=== PATIENT | female | born 1945 | race Caucasian/White ===

== ENCOUNTER 2023-01-22 14:48 | Inpatient (IN) | payer MEDICARE, BC, SELFPAY ==
[2023-01-22] VITALS (24 sets, daily range): BP systolic 133–163; BP diastolic 62–85; PULSE 91–113; RESP 18; TEMP 36.1–36.8; O2SAT 92–98; BMI 25.0
--- NOTE | 2023-01-22 15:18 | CRLHL7_ITS ---
For Patients: As a result of the Cures Act, medical imaging exams and procedure reports are released immediately into your electronic medical record. You may view this report before your referring provider. If you have questions, please contact your health care provider. INDICATION: Right wrist deformity after fall. COMPARISON: None available. TECHNIQUE: AP, lateral, and oblique views of the right wrist are obtained for a total of three views. FINDINGS: There is an acute, transverse, impacted fracture of the distal radial diaphysis with approximately 30 degrees of dorsal angulation of the distal fracture fragment. The impaction results in mild positive ulnar variance. There is an acute, oblique, impacted fracture of the base of the ulnar styloid with approximately 2 millimeters of dorsal displacement of the distal fracture fragment. There is mild deformity of the distal shaft of the 5th metacarpal from an old, healed fracture. The bones of the carpus are in anatomic alignment with the distal radius. 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 The soft tissues are normal in appearance with no sign of foreign body. IMPRESSION: Acute, impacted, transverse, moderately angulated fracture of the distal radius. Acute, impacted, mildly displaced, oblique fracture of the base of the ulnar styloid. Dictated by Shaquille Rivera MD @ 01/22/2023 5:32:35 PM (Electronically Signed)
--- NOTE | 2023-01-22 15:18 | CRLHL7_ITS ---
For Patients: As a result of the Cures Act, medical imaging exams and procedure reports are released immediately into your electronic medical record. You may view this report before your referring provider. If you have questions, please contact your health care provider. INDICATION: Pain after fall. COMPARISON: Pelvis and right femur from 02/22/2021. TECHNIQUE: The right hip and femur were examined with AP and cross-table lateral views. An AP view of the pelvis is obtained for a total of three views. FINDINGS: There is stable satisfactory appearance of ORIF of an intertrochanteric fracture of the right hip with a long femoral intramedullary dani with femoral neck nail and distal interlocking screw. The fixation hardware is intact with no sign of fracture or loosening. I do not see any sign periprosthetic fracture. Again seen is superior displacement of the superior fragment of the greater trochanter. The right femoral head and acetabulum are in anatomic alignment. There is stable mild primary osteoarthritis of both hips with normal joint space height, mild sclerosis of the articular surfaces, and mild marginal osteophyte formation. The SI joints and pubic symphysis are normal in appearance. Again seen is mild irregularity of the right inferior pubic ramus from an old, healed fracture. Irregularity of the lateral aspect of the right superior pubic ramus is consistent with an additional old fracture. The rest of the bony pelvis and soft tissues are normal in appearance. IMPRESSION: No sign of acute osseous injury. Stable satisfactory appearance of ORIF of an intertrochanteric fracture of the right hip using a long femoral intramedullary dani with femoral neck nail and distal interlocking screw. Stable appearance of old fractures of the right superior and inferior pubic rami. 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 Dictated by Shaquille Rivera MD @ 01/22/2023 5:30:22 PM (Electronically Signed)
--- NOTE | 2023-01-22 15:27 | ED_ITS ---
HPI - General Adult General Date Seen: 01/22/23 Chief complaint: Fall/Minor Trauma Stated complaint: Fall Time Seen by Provider: 01/22/23 15:05 Source: patient and RN notes reviewed Mode of arrival: EMS Limitations: no limitations History of Present Illness HPI narrative: Patient is a 78-year-old woman who lives at an assisted living. She is reportedly fairly self-sufficient. She was trying to get out of bed this morning at 7:30 a.m. got tangled in the sheets and fell out of bed landing face forward. She was apparently not found until 06 23, when a notice she did not come down for lunch. She was unable to get up. She has complaints of pain in the right thigh and groin as well as in the right wrist. She denies loss of consciousness. She denies headache or neck pain. No blood thinners. She does smoke and has a history of alcohol use. Related Data Home Medications Medication Instructions Recorded Confirmed atorvastatin 40 mg tablet 40 mg PO HS 01/22/23 01/22/23 furosemide 20 mg tablet 20 mg PO DAILY 01/22/23 01/22/23 metoprolol succinate 50 mg 50 mg PO DAILY 01/22/23 01/22/23 tablet,extended release 24 hr mirtazapine 15 mg tablet 15 mg PO HS 01/22/23 01/22/23 Allergies Allergy/AdvReac Type Severity Reaction Status Date / Time hydrocodone Allergy Verified 01/22/23 14:55 Penicillins Allergy Verified 01/22/23 14:55 tramadol Allergy Verified 01/22/23 14:55 Review of Systems Status of ROS: Reports: 10 or more systems reviewed and unremarkable except as noted in History and below [facility] Social History Smoking Status: Current some day smoker What tobacco products do you use: cigarettes Do you use any of these nicotine containing products: None Second hand tobacco smoke exposure: No How often do you have a drink containing alcohol: 2-4 times a month How many standard drinks containing alcohol do you have on a typical day: 1 or 2 How often do you have six or more drinks on one occasion: Never AUDIT-C Alcohol total score: 2 Non-prescribed substance use: denies use service: No Exam Narrative: Exam Narrative: Vital signs as noted above. In general, an alert, nontoxic elderly woman. Head: Normocephalic, atraumatic. Eyes: Pupils are equal reactive. Extraocular movements are full. Conjunctivae are normal. ENT: Mucous membranes are moist. No facial trauma. Neck: Supple without lymphadenopathy. Nontender to palpation. Heart: Regular rate and rhythm. No murmur or rub. Lungs: Clear bilaterally. No increased work of breathing, crackles or wheezes. Abdomen: Soft and nontender. No organomegaly. Extremities: Well perfused. She has the right hip slightly flexed, she has pain in the groin with range of motion. There is no obvious deformity. Distal CMS is intact. On the right upper extremity she has bruising and swelling around the wrist, pain with range of motion. She also notes pain at the anatomical snuff box. Neurologic: Patient is alert and oriented to person and place. Speech is fluent. Face is symmetric. Moves all extremities equally. Affect: Normal. Skin: Warm and dry. Well perfused. Const: Vital Signs, click to edit/add: Vital Signs - 24 hr 01/22/23 14:55 01/22/23 15:14 01/22/23 15:51 Temperature 98.1 F Pulse Rate 98 95 Respiratory Rate 18 Blood Pressure Blood Pressure [Le ft Upper Arm] 163/72 H Pulse Oximetry 96 96 95 Oxygen Delivery Me thod Room Air Room Air 01/22/23 16:00 01/22/23 16:02 01/22/23 16:15 Temperature Pulse Rate 93 91 103 H Respiratory Rate Blood Pressure 163/82 H Blood Pressure [Le ft Upper Arm] Pulse Oximetry 96 96 97 Oxygen Delivery Me thod 01/22/23 16:30 01/22/23 16:31 01/22/23 16:45 Temperature Pulse Rate 95 103 H 99 Respiratory Rate Blood Pressure 152/85 H Blood Pressure [Le ft Upper Arm] Pulse Oximetry 97 98 96 Oxygen Delivery Me thod 01/22/23 17:00 01/22/23 17:27 01/22/23 17:30 Temperature Pulse Rate 103 H 96 93 Respiratory Rate Blood Pressure Blood Pressure [Le ft Upper Arm] Pulse Oximetry 94 96 94 Oxygen Delivery Me thod 01/22/23 17:45 01/22/23 18:04 01/22/23 18:11 Temperature Pulse Rate 94 103 H 100 Respiratory Rate Blood Pressure 148/74 H Blood Pressure [Le ft Upper Arm] Pulse Oximetry 94 92 93 Oxygen Delivery Me thod 01/22/23 18:15 01/22/23 18:53 01/22/23 19:00 Temperature Pulse Rate 102 H 102 H 101 H Respiratory Rate Blood Pressure Blood Pressure [Le ft Upper Arm] Pulse Oximetry 92 97 95 Oxygen Delivery Me thod 01/22/23 19:15 01/22/23 19:30 01/22/23 19:45 Temperature Pulse Rate 104 H 103 H 111 H Respiratory Rate Blood Pressure Blood Pressure [Le ft Upper Arm] Pulse Oximetry 94 95 94 Oxygen Delivery Me thod Documenting provider has reviewed patient's vital signs: yes Course Course Hospital Course: X-rays of right wrist and hip are pending. Will check some basic labs to as well as CK given multiple hours laying on the floor. In terms of labs, these were notable [place] [address], lactate of 4.6. CK was unremarkable at 2:26 a.m.. LFTs unremarkable. Blood sugar 153. Electrolytes were normal. She ended up getting a Nagel because she was unable to use a bed fox or get up because of pain in the right hip and groin. A cath UA showed 25-50 white blood cells. She does not have complaints of fever, weakness, or dysuria, but I think all things considered it is reasonable cover for possible urinary tract infection with Rocephin for now. She had 500 mL of normal saline. She will need a repeat lactate. In terms of imaging, x-rays of the right wrist by my review showed a displaced and angulated fracture of the distal radius as well as the distal ulnar fracture. I recommended that we try to reduce this with a hematoma block and she agreed to that. Procedure note: Hematoma block was performed with lidocaine with epinephrine, 5 mL. I placed her in finger traps with a 5 lb weight and apply gentle pressure t o the distal radius. I did an x-ray, just a lateral view during this and she had good alignment of the distal radius at that time. I placed her in a sandwich splint with Ortho Glass into Patrick wraps. She tolerated all this well. Repeat x-rays after splinting show slight loss of alignment of the distal radius but I think acceptable. X-rays of the hip and pelvis showed intact hardware, she had evidence of pelvic ring fractures, but these were also seen on previous imaging. She was however unable to get out of bed due to pain and therefore I did a CT of the right hip, I also CT of the lumbar spine as she was complaining of pain there. She does have chronic low back pain and it is unclear to me whether not she is having more pain since her fall. CT of the right hip is read by Radiology as showing acute fractures through the acetabulum and pelvic ring. She has compression fractures at L1 and L3 these are indeterminate in age. They can be seen on a previous x-ray although L1 looks more compressed today to me than it did previously. She had some morphine and Tylenol for pain control. Nagel was placed. Plan will be admission for pain control. I consulted orthopedics and they will see her in the hospital as well. Vital Signs Vital signs: Initial Vital Signs Temperature 98.1 F 01/22/23 14:55 Temperature Source Temporal Artery Scan 01/22/23 14:55 Pulse Rhythm Regular 01/22/23 14:55 Respiratory Rate 18 01/22/23 14:55 Blood Pressure 163/72 H 01/22/23 14:55 Blood Pressure Mean 102 01/22/23 14:55 Blood Pressure Position Supine 01/22/23 14:55 Pulse Oximetry 96 01/22/23 14:55 Oxygen Delivery Method Room Air 01/22/23 14:55 Vital Signs Temperature 98.1 F 01/22/23 14:55 Respiratory Rate 18 01/22/23 14:55 Blood Pressure 163/72 H 01/22/23 14:55 Pulse Oximetry 96 01/22/23 14:55 Oxygen Delivery Method Room Air 01/22/23 14:55 Temperature 98.1 F 01/22/23 14:55 Pulse Rate 111 H 01/22/23 19:45 Respiratory Rate 18 01/22/23 14:55 Blood Pressure 148/74 H 01/22/23 18:11 Pulse Oximetry 94 01/22/23 19:45 Oxygen Delivery Method Room Air 01/22/23 15:51 Medical Decision Making Lab Data Labs: Lab Results 01/22/23 01/22/23 01/22/23 Range/Units 16:12 16:12 16:12 WBC 19.29 H (4.50-11.00) K/uL RBC 3.98 L (4.00-5.20) m/uL Hgb 13.7 (12.0-16.0) gm/dL Hct 40.3 (33.0-51.0) % MCV 101 H (80-100) fL MCH 34 (26-34) pg MCHC 34 (32-36) gm/dL RDW Coeff of Denise 12.5 (11.5-15.5) % Plt Count 257 (140-440) K/uL Neut % (Auto) 82.7 H (42.0-72.0) % Lymph % (Auto) 8.8 L (20-44) % [place] % (Auto) 7.9 (0.0-11.0) % Eos % (Auto) 0.0 (0.0-7.0) % Baso % (Auto) 0.1 (0.0-3.0) % Neut # (Auto) 16.00 H (1.7-7.0) K/uL Lymph # (Auto) 1.70 (0.90-2.90) K/uL [place] # (Auto) 1.50 H (0.00-0.90) K/UL Eos # (Auto) 0.00 (0.00-0.50) K/uL Baso # (Auto) 0.00 (0.00-0.30) K/uL Abs Immat Gran (auto) 0.10 (0.00-0.30) K/uL Imm/Tot Granulo (auto) 0.5 % Sodium 135 (135-149) mmol/L Potassium 3.9 (3.6-5.1) mmol/L Chloride 94 L (96-114) mmol/L Carbon Dioxide 30 (20-32) mmol/L BUN 12 (7-30) mg/dL Creatinine 0.5 (0.5-1.5) mg/dL Estimated Creat Clear 42.39 Estimated GFR 97 ml/min Glucose 153 H (60-115) mg/dL Lactate 4.6 H* (0.5-1.9) mmol/L Calcium 9.0 (8.4-10.6) mg/dL Total Bilirubin 1.5 Cancelled (0.1-1.5) mg/dL Direct Bilirubin 0.1 Cancelled (0.0-0.5) mg/dL AST 41 H (12-35) U/L ALT (4-35) U/L Alkaline Phosphatase (40-150) U/L Total Creatine Kinase (41-117) U/L Total Protein (6.0-8.3) g/dL Albumin (3.3-5.0) g/dL Urine Color (Yellow) Urine Appearance (Clear) Urine pH (5.0-8.5) Ur Specific [place] (1.000-1.030) Urine Protein (Negative) Urine Glucose (UA) (Negative) Urine Ketones (Negative) Urine Blood (Negative) Urine Nitrite (Negative) Urine Bilirubin (Negative) Urine Urobilinogen (0.2-1.0) Ur Leukocyte Esterase (Negative) Urine RBC (0-2) Urine WBC (0-5) Ur Squamous Epith Cells (None-Few) Urine Bacteria (None) 01/22/23 01/22/23 01/22/23 Range/Units 16:12 16:12 16:12 WBC (4.50-11.00) K/uL RBC (4.00-5.20) m/uL Hgb (12.0-16.0) gm/dL Hct (33.0-51.0) % MCV (80-100) fL MCH (26-34) pg MCHC (32-36) gm/dL RDW Coeff of Denise (11.5-15.5) % Plt Count (140-440) K/uL Neut % (Auto) (42.0-72.0) % Lymph % (Auto) (20-44) % [place] % (Auto) (0.0-11.0) % Eos % (Auto) (0.0-7.0) % Baso % (Auto) (0.0-3.0) % Neut # (Auto) (1.7-7.0) K/uL Lymph # (Auto) (0.90-2.90) K/uL [place] # (Auto) (0.00-0.90) K/UL Eos # (Auto) (0.00-0.50) K/uL Baso # (Auto) (0.00-0.30) K/uL Abs Immat Gran (auto) (0.00-0.30) K/uL Imm/Tot Granulo (auto) % Sodium (135-149) mmol/L Potassium (3.6-5.1) mmol/L Chloride (96-114) mmol/L Carbon Dioxide (20-32) mmol/L BUN (7-30) mg/dL Creatinine (0.5-1.5) mg/dL Estimated Creat Clear Estimated GFR ml/min Glucose (60-115) mg/dL Lactate (0.5-1.9) mmol/L Calcium (8.4-10.6) mg/dL Total Bilirubin (0.1-1.5) mg/dL Direct Bilirubin (0.0-0.5) mg/dL AST Cancelled (12-35) U/L ALT 25 Cancelled (4-35) U/L Alkaline Phosphatase 84 Cancelled (40-150) U/L Total Creatine Kinase 226 H (41-117) U/L Total Protein 7.3 (6.0-8.3) g/dL Albumin (3.3-5.0) g/dL Urine Color (Yellow) Urine Appearance (Clear) Urine pH (5.0-8.5) Ur Specific [place] (1.000-1.030) Urine Protein (Negative) Urine Glucose (UA) (Negative) Urine Ketones (Negative) Urine Blood (Negative) Urine Nitrite (Negative) Urine Bilirubin (Negative) Urine Urobilinogen (0.2-1.0) Ur Leukocyte Esterase (Negative) Urine RBC (0-2) Urine WBC (0-5) Ur Squamous Epith Cells (None-Few) Urine Bacteria (None) 01/22/23 01/22/23 01/22/23 Range/Units 16:12 16:12 17:20 WBC (4.50-11.00) K/uL RBC (4.00-5.20) m/uL Hgb (12.0-16.0) gm/dL Hct (33.0-51.0) % MCV (80-100) fL MCH (26-34) pg MCHC (32-36) gm/dL RDW Coeff of Denise (11.5-15.5) % Plt Count (140-440) K/uL Neut % (Auto) (42.0-72.0) % Lymph % (Auto) (20-44) % [place] % (Auto) (0.0-11.0) % Eos % (Auto) (0.0-7.0) % Baso % (Auto) (0.0-3.0) % Neut # (Auto) (1.7-7.0) K/uL Lymph # (Auto) (0.90-2.90) K/uL [place] # (Auto) (0.00-0.90) K/UL Eos # (Auto) (0.00-0.50) K/uL Baso # (Auto) (0.00-0.30) K/uL Abs Immat Gran (auto) (0.00-0.30) K/uL Imm/Tot Granulo (auto) % Sodium (135-149) mmol/L Potassium (3.6-5.1) mmol/L Chloride (96-114) mmol/L Carbon Dioxide (20-32) mmol/L BUN (7-30) mg/dL Creatinine (0.5-1.5) mg/dL Estimated Creat Clear Estimated GFR ml/min Glucose (60-115) mg/dL Lactate (0.5-1.9) mmol/L Calcium (8.4-10.6) mg/dL Total Bilirubin (0.1-1.5) mg/dL Direct Bilirubin (0.0-0.5) mg/dL AST (12-35) U/L ALT (4-35) U/L Alkaline Phosphatase (40-150) U/L Total Creatine Kinase (41-117) U/L Total Protein Cancelled (6.0-8.3) g/dL Albumin 4.3 Cancelled (3.3-5.0) g/dL Urine Color Yellow (Yellow) Urine Appearance Turbid A (Clear) Urine pH 8.5 (5.0-8.5) Ur Specific [place] 1.015 (1.000-1.030) Urine Protein 2+ A (Negative) Urine Glucose (UA) Negative (Negative) Urine Ketones Negative (Negative) Urine Blood Trace-intact A (Negative) Urine Nitrite Negative (Negative) Urine Bilirubin Negative (Negative) Urine Urobilinogen 0.2 (0.2-1.0) Ur Leukocyte Esterase 1+ A (Negative) Urine RBC 0-2 (0-2) Urine WBC 25-50 A (0-5) Ur Squamous Epith Cells Few (None-Few) Urine Bacteria Many A (None) Discharge Plan Discharge Clinical Impression: UTI (urinary tract infection), Right wrist fracture, Closed pelvic fracture Patient Disposition: Admitted As Observation
--- NOTE | 2023-01-22 16:11 | CRLHL7_ITS ---
For Patients: As a result of the Cures Act, medical imaging exams and procedure reports are released immediately into your electronic medical record. You may view this report before your referring provider. If you have questions, please contact your health care provider. INDICATION: Status post closed reduction. COMPARISON: Reproduction films from today at 1534 hours TECHNIQUE: A single lateral view of the right wrist is obtained at 1617 hours FINDINGS: The previously seen volar angulation of the impacted, transverse fracture of the distal radius has been reduced to near anatomic alignment on this single lateral view. There is at most 10 percent dorsal displacement of the distal fracture fragment, with no residual angulation. The fracture of the base of the ulnar styloid cannot be identified on this lateral view. Again seen is mild primary osteoarthritis of the 1st CMC joint. IMPRESSION: Near anatomic alignment of the acute, transverse fracture of the distal radius following closed reduction. Dictated by Shaquille Rivera MD @ 01/22/2023 5:34:51 PM (Electronically Signed)
[2023-01-22 16:17] LABS: Lactate* 4.6 mmol/L (0.5-1.9)
[2023-01-22] MEDS: 0.9 % SODIUM CHLORIDE 500 ML 500 ML IV (16:18)
[2023-01-22 16:22] LABS: Basophils Percent Auto 0.1 % (0.0-3.0); Hematocrit 40.3 % (33.0-51.0); Hemoglobin* 13.7 gm/dL (12.0-16.0); Immature Granulocytes Pct Auto 0.5 %; Lymphocytes Percent Auto 8.8 % (20-44); Mean Corpuscular HGB Conc 34 gm/dL (32-36); Mean Corpuscular Hemoglobin 34 pg (26-34); Mean Corpuscular Volume 101 fL (80-100); Monocytes Percent Auto 7.9 % (0.0-11.0); Neutrophils Percent Auto 82.7 % (42.0-72.0); Platelet Count* 257 K/uL (140-440); RDW Coefficient of Variation % 12.5 % (11.5-15.5); Red Blood Count 3.98 m/uL (4.00-5.20); White Blood Count* 19.29 K/uL (4.50-11.00)
[2023-01-22 16:28] LABS: Slide Review Reflex No
[2023-01-22 16:35] LABS: Albumin* 4.3 g/dL (3.3-5.0); Chloride* 94 mmol/L (96-114); Potassium* 3.9 mmol/L (3.6-5.1); Sodium* 135 mmol/L (135-149)
[2023-01-22 16:37] LABS: Creatinine* 0.5 mg/dL (0.5-1.5); Est. Creatinine Clearance* 42.39; Estimated Glomerular Filt Rate 97 ml/min
[2023-01-22 16:38] LABS: Alkaline Phosphatase* 84 U/L (40-150); Aspartate Amino Transferase* 41 U/L (12-35); Bilirubin Direct* 0.1 mg/dL (0.0-0.5); Bilirubin Total* 1.5 mg/dL (0.1-1.5); Blood Urea Nitrogen* 12 mg/dL (7-30); Carbon Dioxide* 30 mmol/L (20-32); Creatine Kinase* 226 U/L (41-117); Glucose* 153 mg/dL (60-115); Total Protein* 7.3 g/dL (6.0-8.3)
[2023-01-22 16:39] LABS: Alanine Aminotransferase* 25 U/L (4-35)
[2023-01-22] MEDS: MORPHINE 4 MG/ML INJ IVP (16:54)
[2023-01-22] MEDS: ONDANSETRON 2 MG/ML inj 4 MG IVP (16:55)
--- NOTE | 2023-01-22 17:00 | ED.NURSE ---
Finger traps used to assist with wrist reduction. Wrist reduced by MD and orthoglass applied.
--- NOTE | 2023-01-22 17:07 | CRLHL7_ITS ---
For Patients: As a result of the Cures Act, medical imaging exams and procedure reports are released immediately into your electronic medical record. You may view this report before your referring provider. If you have questions, please contact your health care provider. INDICATION: Post reduction and casting. COMPARISON: Immediate post reduction film from today at 1617 hours and pre reduction films from 1534 hours today TECHNIQUE: Portable PA and lateral views of the wrist are obtained. FINDINGS: During the interval, a fiberglass cast has been placed. There is approximately 10 degrees dorsal angulation of the acute, transverse fracture of the distal radius. This is more than seen on the immediate post reduction image, but distinctly less than that seen on the pre reduction images. There is approximately 10 percent dorsal displacement of the distal fracture fragment. The oblique fracture of the base of the ulnar styloid is nondisplaced on the PA view. Again seen is mild deformity of the distal shaft of the 5th metacarpal from an old, healed fracture. The bones of the carpus are in anatomic alignment with the distal radius. Again seen is mild primary osteoarthritis of the 1st CMC joint. The soft tissues are normal in appearance with no sign of foreign body. IMPRESSION: Minimal dorsal angulation and dorsal displacement of the distal fracture fragments of the acute, transverse fracture of the distal radius. Oblique fracture of the base of the ulnar styloid is now seen to be nondisplaced. Dictated by Shaquille Rivera MD @ 01/22/2023 5:37:56 PM (Electronically Signed)
--- NOTE | 2023-01-22 17:22 | ED.NURSE ---
16 spanish lemus catheter placed. ~1L urine removed from lemus bag. Pt's daughter requests UA d/t fall and reports pt seems mildly confused. UA collected and sent.
[2023-01-22 17:35] LABS: Appearance Urine Turbid (Clear); Bilirubin Urine Negative (Negative); Blood Urine Trace-intact (Negative); Color Urine Yellow (Yellow); Glucose Urine Negative (Negative); Ketones Urine Negative (Negative); Leukocyte Esterase Urine 1+ (Negative); Nitrite Urine Negative (Negative); Protein Urine 2+ (Negative); Specific Gravity Urine 1.015 (1.000-1.030); Urobilinogen Urine 0.2 (0.2-1.0); pH Urine 8.5 (5.0-8.5)
--- NOTE | 2023-01-22 17:41 | CRLHL7_ITS ---
For Patients: As a result of the Century Cures Act, medical imaging exams and procedure reports are released immediately into your electronic medical record. You may view this report before your referring provider. If you have questions, please contact your health care provider. Indication: IndicationFall. Technique: Noncontrast CT of the right hip. Permanently recorded images are archived. Please note that all CT scans at this facility use dose modulation, iterative reconstruction, and/or weight-based dosing when appropriate to reduce radiation dose to as low as reasonably achievable. Comparison: Right hip radiographs from the same day. Findings: Acute, minimally displaced fracture of the right superior pubic ramus extending into the anterior acetabulum. Minimally displaced fracture of the right inferior pubic ramus. No definite sacral fracture. Similar-appearing postsurgical changes of ORIF the right hip in the setting of an old intertrochanteric fracture. No perihardware fracture. Diffuse osteopenia. Degenerative changes of the bilateral hips, pubic symphysis, lower lumbar spine, and sacroiliac joints. 4.4 x 3.8 x 3.7 cm partially calcified cystic mass in the right adnexa. Diverticulosis. Calcified fibroids. Indwelling urinary catheter. Atherosclerotic disease. Impression : Acute, minimally displaced fracture of the right superior pubic ramus extending into the anterior acetabulum. Minimally displaced fracture of the right inferior pubic ramus. No definite sacral fracture. 4.4 x 3.8 x 3.7 cm partially calcified cystic mass in the right adnexa. This is suspicious for an ovarian neoplasm. Recommend outpatient pelvic MRI for further characterization, if not previously performed. Please note that all CT scans at this facility use dose modulation, iterative reconstruction, and/or weight-based dosing when appropriate to reduce radiation dose to as low as reasonably achievable. Dictated by Vernon Duarte MD @ 01/22/2023 7:27:32 PM (Electronically Signed)
--- NOTE | 2023-01-22 17:41 | CRLHL7_ITS ---
For Patients: As a result of the Century Cures Act, medical imaging exams and procedure reports are released immediately into your electronic medical record. You may view this report before your referring provider. If you have questions, please contact your health care provider. INDICATION: Fall. TECHNIQUE: CT lumbar spine without contrast. Permanently recorded images are archived. COMPARISON: None. FINDINGS: Vertebrae: Age-indeterminate compression fractures L1 and L3 with 25% height loss at L1 and 50% height loss at L3. grade 1 anterolisthesis of L2 on L3. Discs and facet joints: Fusion of the L3-4 level. Mild degenerative disc changes at L5-S1 and to a lesser degree at L4-5. Multilevel degenerative changes of the facet joints. Extraspinal findings: Atherosclerotic disease. IMPRESSION: Age-indeterminate compression fractures of L1 and L3. Recommend correlation with sites for focal tenderness. These can be further evaluated with MRI. Please note that all CT scans at this facility use dose modulation, iterative reconstruction, and/or weight-based dosing when appropriate to reduce radiation dose to as low as reasonably achievable. Dictated by Vernon Duarte MD @ 01/22/2023 7:33:31 PM (Electronically Signed)
[2023-01-22 17:52] LABS: Bacteria Urine Many; RBC Urine 0-2 (0-2); Squamous Epithelial Cell Urine Few (None-Few); WBC Urine 25-50 (0-5)
[2023-01-22] MEDS: cefTRIAXone 1 GM in 0.9 % SODIUM CHLORIDE Mini-bag 100 ML IVPB (18:49)
[2023-01-22] MEDS: ACETAMINOPHEN 500 MG TABLET 1000 MG PO (19:48)
[2023-01-22] MEDS: 0.9 % SODIUM CHLORIDE 1000 ml 1,000 ML 500 ML IV (22:33)
[2023-01-22] MEDS: ENOXAPARIN 30 MG/0.3ML INJ SUBCUT (22:34)
[2023-01-22] MEDS: MIRTAZAPINE 15 MG TABLET PO (22:40)
--- NOTE | 2023-01-22 23:56 | P.IMHP_ITS ---
Hospitalist- H&P: HPI History of Present Illness Time Seen by Provider: 20:00 Date Seen: 01/22/23 Chief complaint: Fall with multiple fractures Narrative: Hamida Allen is a 78 year old woman was in her usual state of health. Currently residing in an assisted living facility due to increasing needs. Attempted getting out of bed this morning around 0730 and became entangled in her sheets, fell out of bed, landed on her face on the floor. Remained on the floor until 1230 this afternoon when staff from the assisted living facility finally came to check on her because they did not see her at lunch. Was unable to get up. Complain of right thigh and groin pain as well as right wrist pain. Denies loss of consciousness. Denies head or neck pain. Aside from the pain, she is able to move most extremities. No new focal motor neurologic deficits. No fevers, rigors, diaphoresis. No diarrhea, dysuria, urgency, frequency, hematuria. No recent other trauma or injury. Review of Systems Status of ROS: Reports: 10 or more systems reviewed and unremarkable except as noted in History and below [facility] Medical History History of failure to thrive syndrome ?Z87.898 - Personal history of other specified conditions (ICD-10) History of malnutrition ?Z86.39 - Personal history of other endocrine, nutritional and metabolic disease (ICD-10) Tricuspid regurgitation ?I07.1 - Rheumatic tricuspid insufficiency (ICD-10) Pulmonary hypertension ?I27.20 - Pulmonary hypertension, unspecified (ICD-10) Heart failure with reduced ejection fraction ?I50.20 - Unspecified systolic (congestive) heart failure (ICD-10) Closed fracture of left humerus ?S42.302A - Unspecified fracture of shaft of humerus, left arm, initial encounter for closed fracture (ICD-10) Closed fracture of second lumbar vertebra ?S32.029A - Unspecified fracture of second lumbar vertebra, initial encounter for closed fracture (ICD-10) Closed compression fracture of thoracic vertebra ?S22.000A - Wedge compression fracture of unspecified thoracic vertebra, i nitial encounter for closed fracture (ICD-10) Closed fracture of cuboid bone ?S92.213A - Displaced fracture of cuboid bone of unspecified foot, initial encounter for closed fracture (ICD-10) Closed fracture of 5th metacarpal ?S62.308A - Unspecified fracture of other metacarpal bone, initial encounter for closed fracture (ICD-10) Chronic alcoholism in remission ?F10.21 - Alcohol dependence, in remission (ICD-10) Osteopenia ?M85.80 - Other specified disorders of bone density and structure, unspecified site (ICD-10) Macrocytic anemia ?D53.9 - Nutritional anemia, unspecified (ICD-10) Right sacral radiculopathy ?M54.18 - Radiculopathy, sacral and sacrococcygeal region (ICD-10) Hyperlipidemia ?E78.5 - Hyperlipidemia, unspecified (ICD-10) COPD (chronic obstructive pulmonary disease) with chronic bronchitis ?J44.9 - Chronic obstructive pulmonary disease, unspecified (ICD-10) Tobacco use disorder ?F17.200 - Nicotine dependence, unspecified, uncomplicated (ICD-10) Essential hypertension ?I10 - Essential (primary) hypertension (ICD-10) Surgical History S/P tubal ligation ?Z98.51 - Tubal ligation status (ICD-10) Status post rotator cuff repair ?Z98.890 - Other specified postprocedural states (ICD-10) History of femoral hernia repair ?Z98.890 - Other specified postprocedural states (ICD-10) ?Z87.19 - Personal history of other diseases of the digestive system (ICD-10) Status post appendectomy ?Z90.49 - Acquired absence of other specified parts of digestive tract (ICD- 10) Status post cholecystectomy ?Z90.49 - Acquired absence of other specified parts of digestive tract (ICD- 10) History of bladder suspension procedure ?Z98.890 - Other specified postprocedural states (ICD-10) ?Z87.448 - Personal history of other diseases of urinary system (ICD-10) Status post lumbar spine surgery for decompression of spinal cord ?Z98.890 - Other specified postprocedural states (ICD-10) Family History Sister Breast cancer Mother Heart disease Father High blood pressure Prostate cancer Brother Prostate cancer Social History Narrative: Currently lives in an assisted living setting. Daughter, Alejandra Echevarria, is her designated power of escort blind for health, and her cell phone number is [phone]. Patient requests full resuscitation in the event of cardiopulmonary demise. Dr. Mcgraw is her primary care physician. What is your current living situation?: I presently have a place to live Problems where you live: no known problems Problems where you live details: NA In the past 12 months, utilities in danger of being shut off: no In the past 12 mos, have been you worried that your food would run out before you had money to buy more?: never true In the past 12 mos, the food you bought just didn't last and you didn't have money to buy more?: never true Highest level of school completed/degree received: high school graduate Smoking Status: Current every day smoker What tobacco products do you use: cigarettes Do you use any of these nicotine containing products: None Second hand tobacco smoke exposure: No How often do you have a drink containing alcohol: 4 or more times a week Alcohol type: beer and wine Alcohol type details: drinks 1/2 can of beer or cup of wine daily How many standard drinks containing alcohol do you have on a typical day: 1 or 2 How often do you have six or more drinks on one occasion: Never AUDIT-C Alcohol total score: 4 Non-prescribed substance use: denies use Caffeine: No How often does anyone, including family, friends and others, physically hurt you : never How often does anyone, including family, friends and others, insult or talk down to you: never How often does anyone, including family, friends and others, threaten you with harm: never How often does anyone, including family, friends and others, scream or curse at you: never service: No Meds Home Medications and Allergies Home Medications Medication Instructions Recorded Confirmed Type atorvastatin 40 mg tablet 40 mg PO HS 01/22/23 01/22/23 History furosemide 20 mg tablet 20 mg PO DAILY 01/22/23 01/22/23 History metoprolol succinate 50 mg 50 mg PO DAILY 01/22/23 01/22/23 History tablet,extended release 24 hr mirtazapine 15 mg tablet 15 mg PO HS 01/22/23 01/22/23 History Allergies Allergy/AdvReac Type Severity Reaction Status Date / Time hydrocodone Allergy Verified 01/22/23 14:55 Penicillins Allergy Verified 01/22/23 14:55 tramadol Allergy Verified 01/22/23 14:55 Exam Narrative: Exam Narrative: I examine her in the emergency department, on the exam table, with patient in a semi recumbent position. Appears comfortable when still. Winces with minimal movement. Right forearm and wrist are in a splint at this time. Appears disheveled. Vision and hearing are grossly normal. Alert, oriented to self, place, time, situation. At time seems inappropriately giddy. Articulate, cooperative, friendly. Otherwise mood and affect appear congruent. External auditory canals are clear with tympanic membranes sclerotic. Midline nasal septum. Mallampati class 3 airway. No icterus or conjunctival injection. Pupils equally round reactive light and accommodation. Extraocular muscles are intact. Neck is supple. Midline trachea. No JVD or hepatojugular reflux. No carotid bruits. Pursed lip breathing. Reportedly this is baseline for her. Barrel shaped chest. Mild prolonged expiratory phase. Otherwise lungs are clear to auscultation. No wheezing, rhonchi, or rales. No CVA tenderness. Mild tenderness to thumping over the lower thoracic and upper lumbar spine. Heart tones with regular rhythm. Normal S1-S2. PMI not laterally displaced. Abdomen with active bowel sounds, soft, nontender. No organomegaly or masses. No rebound or guarding. Extremities without edema. No focal motor neurologic deficits. Const: Vital Signs, click to edit/add: Vital Signs - 24 hr 01/22/23 14:55 01/22/23 15:14 01/22/23 15:51 Temperature 98.1 F Pulse Rate 98 95 Pulse Rate [Pulse Oximeter] Respiratory Rate 18 Blood Pressure Blood Pressure [Le ft Upper Arm] 163/72 H Blood Pressure [Ri ght Arm] Pulse Oximetry 96 96 95 Oxygen Delivery Me thod Room Air Room Air 01/22/23 16:00 01/22/23 16:02 01/22/23 16:15 Temperature Pulse Rate 93 91 103 H Pulse Rate [Pulse Oximeter] Respiratory Rate Blood Pressure 163/82 H Blood Pressure [Le ft Upper Arm] Blood Pressure [Ri ght Arm] Pulse Oximetry 96 96 97 Oxygen Delivery Me thod 01/22/23 16:30 01/22/23 16:31 01/22/23 16:45 Temperature Pulse Rate 95 103 H 99 Pulse Rate [Pulse Oximeter] Respiratory Rate Blood Pressure 152/85 H Blood Pressure [Le ft Upper Arm] Blood Pressure [Ri ght Arm] Pulse Oximetry 97 98 96 Oxygen Delivery Me thod 01/22/23 17:00 01/22/23 17:27 01/22/23 17:30 Temperature Pulse Rate 103 H 96 93 Pulse Rate [Pulse Oximeter] Respiratory Rate Blood Pressure Blood Pressure [Le ft Upper Arm] Blood Pressure [Ri ght Arm] Pulse Oximetry 94 96 94 Oxygen Delivery Me thod 01/22/23 17:45 01/22/23 18:04 01/22/23 18:11 Temperature Pulse Rate 94 103 H 100 Pulse Rate [Pulse Oximeter] Respiratory Rate Blood Pressure 148/74 H Blood Pressure [Le ft Upper Arm] Blood Pressure [Ri ght Arm] Pulse Oximetry 94 92 93 Oxygen Delivery Me od 01/22/23 18:15 01/22/23 18:53 01/22/23 19:00 Temperature Pulse Rate 102 H 102 H 101 H Pulse Rate [Pulse Oximeter] Respiratory Rate Blood Pressure Blood Pressure [Le ft Upper Arm] Blood Pressure [Ri ght Arm] Pulse Oximetry 92 97 95 Oxygen Delivery Me od 01/22/23 19:15 01/22/23 19:30 01/22/23 19:45 Temperature Pulse Rate 104 H 103 H 111 H Pulse Rate [Pulse Oximeter] Respiratory Rate Blood Pressure Blood Pressure [Le ft Upper Arm] Blood Pressure [Ri ght Arm] Pulse Oximetry 94 95 94 Oxygen Delivery Me thod 01/22/23 20:00 01/22/23 20:20 01/22/23 20:20 Temperature 98.3 F Pulse Rate 111 H Pulse Rate [Pulse Oximeter] 113 H Respiratory Rate 18 18 Blood Pressure Blood Pressure [Le ft Upper Arm] Blood Pressure [Ri ght Arm] 133/62 Pulse Oximetry 94 96 Oxygen Delivery Me od Room Air 01/22/23 23:00 Temperature Pulse Rate Pulse Rate [Pulse Oximeter] Respiratory Rate Blood Pressure Blood Pressure [Le ft Upper Arm] Blood Pressure [Ri ght Arm] Pulse Oximetry 96 Oxygen Delivery Me od Room Air Hospitalist - H&P: Result Labs Labs: Short CBC 01/22/23 Range/Units 16:12 WBC 19.29 H (4.50-11.00) K/uL Hgb 13.7 (12.0-16.0) gm/dL Hct 40.3 (33.0-51.0) % Plt Count 257 (140-440) K/uL BMP 01/22/23 16:12 Sodium 135 Potassium 3.9 Chloride 94 L Carbon Dioxide 30 BUN 12 Creatinine 0.5 Glucose 153 H Calcium 9.0 Cardiac Enzymes 01/22/23 Range/Units 16:12 Total Creatine Kinase 226 H (41-117) U/L Liver Function 01/22/23 01/22/23 01/22/23 Range/Units 16:12 16:12 16:12 Total Bilirubin 1.5 Cancelled (0.1-1.5) mg/dL Direct Bilirubin 0.1 Cancelled (0.0-0.5) mg/dL AST 41 H (12-35) U/L ALT (4-35) U/L Alkaline Phosphatase (40-150) U/L Albumin (3.3-5.0) g/dL 01/22/23 01/22/23 01/22/23 Range/Units 16:12 16:12 16:12 Total Bilirubin (0.1-1.5) mg/dL Direct Bilirubin (0.0-0.5) mg/dL AST Cancelled (12-35) U/L ALT 25 Cancelled (4-35) U/L Alkaline Phosphatase 84 Cancelled (40-150) U/L Albumin 4.3 (3.3-5.0) g/dL 01/22/23 Range/Units 16:12 Total Bilirubin (0.1-1.5) mg/dL Direct Bilirubin (0.0-0.5) mg/dL AST (12-35) U/L ALT (4-35) U/L Alkaline Phosphatase (40-150) U/L Albumin Cancelled (3.3-5.0) g/dL Urine 01/22/23 Range/Units 17:20 Urine Color Yellow (Yellow) Urine Appearance Turbid A (Clear) Urine pH 8.5 (5.0-8.5) Ur Specific [place] 1.015 (1.000-1.030) Urine Protein 2+ A (Negative) Urine Glucose (UA) Negative (Negative) ECG Attestation: I personally reviewed and interpreted this ECG as follows: ECG interpretation date: 01/23/23 ECG interpretation time: 20:00 Prior ECG tracings: not available for review Interpretation: Normal sinus rhythm with premature atrial complexes. Imaging Right hip x-ray: Attestation: I have reviewed the pertinent imaging results. Radiologist's impression: IMPRESSION: No sign of acute osseous injury. Stable satisfactory appearance of ORIF of an intertrochanteric fracture of the right hip using a long femoral intramedullary dani with femoral neck nail and distal interlocking screw. Stable appearance of old fractures of the right superior and inferior pubic rami. 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 CT scan of pelvis: Attestation: I have reviewed the pertinent imaging results. Radiologist's impression: Impression : Acute, minimally displaced fracture of the right superior pubic ramus extending into the anterior acetabulum. Minimally displaced fracture of the right inferior pubic ramus. No definite sacral fracture. 4.4 x 3.8 x 3.7 cm partially calcified cystic mass in the right adnexa. This is suspicious for an ovarian neoplasm. Recommend outpatient pelvic MRI for further characterization, if not previously performed. CT scan of lumbosacral spine: Attestation: I have reviewed the pertinent imaging results. Radiologist's impression: FINDINGS: Vertebrae: Age-indeterminate compression fractures L1 and L3 with 25% height loss at L1 and 50% height loss at L3. grade 1 anterolisthesis of L2 on L3. Discs and facet joints: Fusion of the L3-4 level. Mild degenerative disc changes at L5-S1 and to a lesser degree at L4-5. Multilevel degenerative changes of the facet joints. Extraspinal findings: Atherosclerotic disease. IMPRESSION: Age-indeterminate compression fractures of L1 and L3. Recommend correlation with sites for focal tenderness. These can be further evaluated with MRI. Right wrist x-ray: Attestation: I have reviewed the pertinent imaging results. Radiologist's impression: IMPRESSION: Acute, impacted, transverse, moderately angulated fracture of the distal radius. Acute, impacted, mildly displaced, oblique fracture of the base of the ulnar styloid. Right wrist x-ray, post closed reduction: Attestation: I have reviewed the pertinent imaging results. Radiologist's impression: IMPRESSION: Near anatomic alignment of the acute, transverse fracture of the distal radius following closed reduction. Assessment and Plan Assessment and plan (1) Fall: Status: Acute (2) Closed pelvic fracture: Problem comment: CT scan of pelvis on 01/22/2023 demonstrates the following: Acute, minimally displaced fracture of the right superior pubic ramus extending into the anterior acetabulum. Minimally displaced fracture of the right inferior pubic ramus. Status: Acute (3) Right wrist fracture: Problem comment: Right wrist x-ray on 01/22/2023 demonstrates the following: Acute, impacted, transverse, moderately angulated fracture of the distal radius. Acute, impacted, mildly displaced, oblique fracture of the base of the ulnar styloid. Status: Acute (4) UTI (urinary tract infection): Problem comment: Possible. Await urine culture. Initiate empiric IV antibiotic. Status: Acute (5) Osteoporosis: Problem comment: Fall from standing, multiple fractures, certainly patient would benefit from consideration for initiation of treatment for osteoporosis in the outpatient setting. Status: Acute (6) Physical debility: Problem comment: Significantly aggravated by current multitude of fractures and associated pain. Status: Acute Plan 1. Reviewed impression with patient and daughter, Alejandra. Answered their questions. 2. Admit to the hospital. 3. Strive to achieve pain control, still not achieved yet. 4. Treat empirically for possible UTI as we await urine cultures. 5. Orthopedic surgery consultation. 6. Physical therapy and occupational therapy consultation. 7. [employer] consultation. 8. Nonpharmacologic and pharmacologic interventions to assist with pain management as much as possible. 9. Claims she is only smoking 1-2 cigarettes daily now. Declines nicotine replacement therapy at this time. 10. Continue with other supportive efforts. 11. Patient and daughter agreeable to above stated plans and recommendations
[2023-01-23 03:00] VITALS: BP 130/60; PULSE 101; RESP 17; TEMP 36.1; O2SAT 96
[2023-01-23 06:53] LABS: Lactate* 1.8 mmol/L (0.5-1.9)
[2023-01-23 06:59] LABS: Basophils Percent Auto 0.2 % (0.0-3.0); Hematocrit 35.4 % (33.0-51.0); Hemoglobin* 11.8 gm/dL (12.0-16.0); Immature Granulocytes Pct Auto 0.3 %; Lymphocytes Percent Auto 14.1 % (20-44); Mean Corpuscular HGB Conc 33 gm/dL (32-36); Mean Corpuscular Hemoglobin 35 pg (26-34); Mean Corpuscular Volume 104 fL (80-100); Monocytes Percent Auto 7.9 % (0.0-11.0); Neutrophils Percent Auto 77.5 % (42.0-72.0); Platelet Count* 218 K/uL (140-440); RDW Coefficient of Variation % 12.8 % (11.5-15.5); Red Blood Count 3.39 m/uL (4.00-5.20); White Blood Count* 13.22 K/uL (4.50-11.00)
[2023-01-23 07:24] LABS: Slide Review Reflex No
[2023-01-23 07:26] LABS: Chloride* 100 mmol/L (96-114); Potassium* 3.7 mmol/L (3.6-5.1); Sodium* 135 mmol/L (135-149)
[2023-01-23 07:28] LABS: Creatine Kinase* 215 U/L (41-117); Creatinine* 0.5 mg/dL (0.5-1.5); Est. Creatinine Clearance* 42.39; Estimated Glomerular Filt Rate 97 ml/min
[2023-01-23 07:29] LABS: Blood Urea Nitrogen* 12 mg/dL (7-30); Carbon Dioxide* 29 mmol/L (20-32); Glucose* 158 mg/dL (60-115)
[2023-01-23 07:32] LABS: C Reactive Protein* 7.7 mg/dL (0.5-1.0)
--- NOTE | 2023-01-23 07:39 | PC.NURSE ---
Patient admitted to unit at 2020, accompanied by daughter Alejandra. Cast to right wrist/lower arm. CMS to right fingers intact, no edema noted. Right lower extremity warm to the touch, patient able to wiggle toes. Bilateral feet are dusky on the sole, per daughter this is per her baseline, capillary refill >3 seconds. Bruising noted to bilateral upper and lower extremities. Patient reporting pain to left knee, bruising noted laterally and medially. Per patient she reported to ER MD regarding left knee pain. Nagel catheter patent, draining cloudy, leni, strong smelling urine. Encouraged patient to drink fluids. Pain reported at 5/10, per patient that is an acceptable pain level.
[2023-01-23 07:40] VITALS: BP 151/84; PULSE 119; RESP 18; TEMP 36.2; O2SAT 92
[2023-01-23] MEDS: FUROSEMIDE 20 MG TABLET PO (08:02)
[2023-01-23] MEDS: METOPROLOL SUCCINATE (XL) 50 MG TAB PO (08:03)
[2023-01-23] MEDS: ACETAMINOPHEN 325 MG TABLET 650 MG PO ×4 (08:03→21:05)
[2023-01-23] MEDS: SODIUM CHLORIDE 0.9 % (FLUSH) 10 ML SYRINGE 5 ML IVF ×2 (08:04→21:06)
--- NOTE | 2023-01-23 08:16 | CRLHL7_ITS ---
For Patients: As a result of the Cures Act, medical imaging exams and procedure reports are released immediately into your electronic medical record. You may view this report before your referring provider. If you have questions, please contact your health care provider. Indication: L KNEE PAIN, FALL Technique: Left knee 3 views Comparison: None Findings: Patellofemoral spurring. No joint effusion. Dense vascular calcifications. Chronic changes to the lateral tibial plateau with subchondral concavity. Medial compartment narrowing. Osteopenia. Impression: Chronic impaction fracture deformity of the lateral tibial plateau. No acute fracture. Dictated by Sudhakar Soares MD @ 01/23/2023 9:07:00 AM (Electronically Signed)
--- NOTE | 2023-01-23 09:38 | CRLHL7_ITS ---
For Patients: As a result of the Century Cures Act, medical imaging exams and procedure reports are released immediately into your electronic medical record. You may view this report before your referring provider. If you have questions, please contact your health care provider. INDICATION: WHEEZING TECHNIQUE: Chest 1 view COMPARISON: 09/01/2015 FINDINGS: Cardiac silhouette is mildly prominent. There are vascular calcifications. No infiltrate or edema. No effusion or pneumothorax. Postop changes to the right shoulder. IMPRESSION: No acute findings. Dictated by Sudhakar Soares MD @ 01/23/2023 10:30:03 AM (Electronically Signed)
--- NOTE | 2023-01-23 09:49 | PM.IMPN1 ---
Progress Note: A&P Assessment and plan (1) Fall: Problem details: - mechanical Status: Acute (2) Closed pelvic fracture: Problem details: - CT scan of pelvis on 01/22/23: Acute, minimally displaced fracture of the right superior pubic ramus extending into the anterior acetabulum. Minimally displaced fracture of the right inferior pubic ramus. Status: Acute (3) Right wrist fracture: Problem details: - Right wrist XR on 01/22/2023: Acute, impacted, transverse, moderately angulated fracture of the distal radius Acute, impacted, mildly displaced, oblique fracture of the base of the ulnar styloid Status: Acute (4) UTI (urinary tract infection): Problem details: - + UA, culture pending - Ceftriaxone initiated 01/22 Status: Acute (5) Osteoporosis: Problem details: - Fall from standing with multiple fractures - Certainly patient would benefit from consideration for initiation of treatment for osteoporosis in the outpatient setting Status: Acute (6) Physical debility: Problem details: - therapies following Status: Acute (7) Wheezing: Problem details: - noted on exam 01/23, patient not having any chest pain or dyspnea. + smoker - RT referral placed Status: Acute (8) Tachycardia: Problem details: - sinus, possibly related to pain (patient refusing to take anything beyond Tylenol 650mg BID), dehydration (urine appears concentrated, + UA) - low dose IVFs, hold Furosemide, continue Metoprolol, continue to follow Status: Acute (9) Ovarian mass, right: Problem details: - seen on admission imaging - noted in 2021 per chart review, patient has seen Gynecology as an outpatient Status: Acute Plan - per above - Lovenox and SCDs for ppx - will need SNF upon discharge Subjective Date Seen: 01/23/23 Interval history: Hamida was admitted last night after a mechanical fall, sustaining a fracture of her R radius/ulna, R inferior pubic ramus. She has intermittent pain today, no other concerns for the hospitalist team. She is accepting of the need for SNF placement upon discharge. Exam Narrative: Exam Narrative: GEN: Alert, loquacious, nontoxic HEENT: EOMIs bilaterally, no scleral icterus CV: RRR, No concerning murmurs R: Air movement adequate, mild expiratory wheezing bilateral apices Ext: wwp, no concerning edema Skin: Scattered bruises and abrasions noted on left upper extremity and left knee, right arm is splinted and VENTURA wrapped Neuro: Nonfocal Psych: Appropriate Const: Vital Signs, click to edit/add: Vital Signs - 24 hr 01/22/23 14:55 01/22/23 15:14 01/22/23 15:51 Temperature 98.1 F Pulse Rate 98 95 Pulse Rate [Pulse Oximeter] Respiratory Rate 18 Blood Pressure Blood Pressure [Le ft Upper Arm] 163/72 H Blood Pressure [Ri ght Arm] Pulse Oximetry 96 96 95 Oxygen Delivery Me thod Room Air Room Air 01/22/23 16:00 01/22/23 16:02 01/22/23 16:15 Temperature Pulse Rate 93 91 103 H Pulse Rate [Pulse Oximeter] Respiratory Rate Blood Pressure 163/82 H Blood Pressure [Le ft Upper Arm] Blood Pressure [Ri ght Arm] Pulse Oximetry 96 96 97 Oxygen Delivery Me thod 01/22/23 16:30 01/22/23 16:31 01/22/23 16:45 Temperature Pulse Rate 95 103 H 99 Pulse Rate [Pulse Oximeter] Respiratory Rate Blood Pressure 152/85 H Blood Pressure [Le ft Upper Arm] Blood Pressure [Ri ght Arm] Pulse Oximetry 97 98 96 Oxygen Delivery Me thod 01/22/23 17:00 01/22/23 17:27 01/22/23 17:30 Temperature Pulse Rate 103 H 96 93 Pulse Rate [Pulse Oximeter] Respiratory Rate Blood Pressure Blood Pressure [Le ft Upper Arm] Blood Pressure [Ri ght Arm] Pulse Oximetry 94 96 94 Oxygen Delivery Me thod 01/22/23 17:45 01/22/23 18:04 01/22/23 18:11 Temperature Pulse Rate 94 103 H 100 Pulse Rate [Pulse Oximeter] Respiratory Rate Blood Pressure 148/74 H Blood Pressure [Le ft Upper Arm] Blood Pressure [Ri ght Arm] Pulse Oximetry 94 92 93 Oxygen Delivery Me thod 01/22/23 18:15 01/22/23 18:53 01/22/23 19:00 Temperature Pulse Rate 102 H 102 H 101 H Pulse Rate [Pulse Oximeter] Respiratory Rate Blood Pressure Blood Pressure [Le ft Upper Arm] Blood Pressure [Ri ght Arm] Pulse Oximetry 92 97 95 Oxygen Delivery Me thod 01/22/23 19:15 01/22/23 19:30 01/22/23 19:45 Temperature Pulse Rate 104 H 103 H 111 H Pulse Rate [Pulse Oximeter] Respiratory Rate Blood Pressure Blood Pressure [Le ft Upper Arm] Blood Pressure [Ri ght Arm] Pulse Oximetry 94 95 94 Oxygen Delivery Me thod 01/22/23 20:00 01/22/23 20:20 01/22/23 20:20 Temperature 98.3 F Pulse Rate 111 H Pulse Rate [Pulse Oximeter] 113 H Respiratory Rate 18 18 Blood Pressure Blood Pressure [Le ft Upper Arm] Blood Pressure [Ri ght Arm] 133/62 Pulse Oximetry 94 96 Oxygen Delivery Me thod Room Air 01/22/23 23:00 01/22/23 23:00 01/23/23 03:00 Temperature 97.0 F L 97.0 F L Pulse Rate Pulse Rate [Pulse Oximeter] 98 101 H Respiratory Rate 18 17 Blood Pressure Blood Pressure [Le ft Upper Arm] Blood Pressure [Ri ght Arm] 150/72 H 130/60 Pulse Oximetry 96 94 96 Oxygen Delivery Me thod Room Air Room Air Room Air 01/23/23 07:40 01/23/23 07:40 01/23/23 07:40 Temperature 97.2 F L Pulse Rate Pulse Rate [Pulse Oximeter] 119 H 119 H Respiratory Rate 18 18 18 Blood Pressure Blood Pressure [Le ft Upper Arm] Blood Pressure [Ri ght Arm] 151/84 H Pulse Oximetry 92 92 Oxygen Delivery Me thod Room Air Room Air Labs Labs: Laboratory Results - last 24 hr 01/22/23 01/22/23 01/22/23 16:12 16:12 16:12 WBC 19.29 H RBC 3.98 L Hgb 13.7 Hct 40.3 MCV 101 H MCH 34 MCHC 34 RDW Coeff of Denise 12.5 Plt Count 257 Neut % (Auto) 82.7 H Lymph % (Auto) 8.8 L [place] % (Auto) 7.9 Eos % (Auto) 0.0 Baso % (Auto) 0.1 Neut # (Auto) 16.00 H Lymph # (Auto) 1.70 [place] # (Auto) 1.50 H Eos # (Auto) 0.00 Baso # (Auto) 0.00 Abs Immat Gran (auto) 0.10 Imm/Tot Granulo (auto) 0.5 Sodium 135 Potassium 3.9 Chloride 94 L Carbon Dioxide 30 BUN 12 Creatinine 0.5 Estimated Creat Clear 42.39 Estimated GFR 97 Glucose 153 H Lactate 4.6 H* Calcium 9.0 Total Bilirubin 1.5 Cancelled Direct Bilirubin 0.1 Cancelled AST 41 H ALT Alkaline Phosphatase Total Creatine Kinase C-Reactive Protein Total Protein Albumin Urine Color Urine Appearance Urine pH Ur Specific [place] Urine Protein Urine Glucose (UA) Urine Ketones Urine Blood Urine Nitrite Urine Bilirubin Urine Urobilinogen Ur Leukocyte Esterase Urine RBC Urine WBC Ur Squamous Epith Cells Urine Bacteria 01/22/23 01/22/23 01/22/23 16:12 16:12 16:12 WBC RBC Hgb Hct MCV MCH MCHC RDW Coeff of Denise Plt Count Neut % (Auto) Lymph % (Auto) [place] % (Auto) Eos % (Auto) Baso % (Auto) Neut # (Auto) Lymph # (Auto) [place] # (Auto) Eos # (Auto) Baso # (Auto) Abs Immat Gran (auto) Imm/Tot Granulo (auto) Sodium Potassium Chloride Carbon Dioxide BUN Creatinine Estimated Creat Clear Estimated GFR Glucose Lactate Calcium Total Bilirubin Direct Bilirubin AST Cancelled ALT 25 Cancelled Alkaline Phosphatase 84 Cancelled Total Creatine Kinase 226 H C-Reactive Protein Total Protein 7.3 Albumin Urine Color Urine Appearance Urine pH Ur Specific [place] Urine Protein Urine Glucose (UA) Urine Ketones Urine Blood Urine Nitrite Urine Bilirubin Urine Urobilinogen Ur Leukocyte Esterase Urine RBC Urine WBC Ur Squamous Epith Cells Urine Bacteria 01/22/23 01/22/23 01/22/23 16:12 16:12 17:20 WBC RBC Hgb Hct MCV MCH MCHC RDW Coeff of Denise Plt Count Neut % (Auto) Lymph % (Auto) [place] % (Auto) Eos % (Auto) Baso % (Auto) Neut # (Auto) Lymph # (Auto) [place] # (Auto) Eos # (Auto) Baso # (Auto) Abs Immat Gran (auto) Imm/Tot Granulo (auto) Sodium Potassium Chloride Carbon Dioxide BUN Creatinine Estimated Creat Clear Estimated GFR Glucose Lactate Calcium Total Bilirubin Direct Bilirubin AST ALT Alkaline Phosphatase Total Creatine Kinase C-Reactive Protein Total Protein Cancelled Albumin 4.3 Cancelled Urine Color Yellow Urine Appearance Turbid A Urine pH 8.5 Ur Specific [place] 1.015 Urine Protein 2+ A Urine Glucose (UA) Negative Urine Ketones Negative Urine Blood Trace-intact A Urine Nitrite Negative Urine Bilirubin Negative Urine Urobilinogen 0.2 Ur Leukocyte Esterase 1+ A Urine RBC 0-2 Urine WBC 25-50 A Ur Squamous Epith Cells Few Urine Bacteria Many A 01/22/23 01/23/23 21:02 05:52 WBC 13.22 H RBC 3.39 L Hgb 11.8 L Hct 35.4 MCV 104 H MCH 35 H MCHC 33 RDW Coeff of Denise 12.8 Plt Count 218 Neut % (Auto) 77.5 H Lymph % (Auto) 14.1 L [place] % (Auto) 7.9 Eos % (Auto) 0.0 Baso % (Auto) 0.2 Neut # (Auto) 10.20 H Lymph # (Auto) 1.90 [place] # (Auto) 1.00 H Eos # (Auto) 0.00 Baso # (Auto) 0.00 Abs Immat Gran (auto) 0.00 Imm/Tot Granulo (auto) 0.3 Sodium 135 Potassium 3.7 Chloride 100 Carbon Dioxide 29 BUN 12 Creatinine 0.5 Estimated Creat Clear 42.39 Estimated GFR 97 Glucose 158 H Lactate 3.0 H 1.8 Calcium 8.0 L Total Bilirubin Direct Bilirubin AST ALT Alkaline Phosphatase Total Creatine Kinase 215 H C-Reactive Protein 7.7 H Total Protein Albumin Urine Color Urine Appearance Urine pH Ur Specific [place] Urine Protein Urine Glucose (UA) Urine Ketones Urine Blood Urine Nitrite Urine Bilirubin Urine Urobilinogen Ur Leukocyte Esterase Urine RBC Urine WBC Ur Squamous Epith Cells Urine Bacteria
[2023-01-23] MEDS: 0.9 % SODIUM CHLORIDE 250 ml 250 ML IV ×2 (10:09→23:21)
--- NOTE | 2023-01-23 11:11 | PC.SOCIAL ---
Addendum entered by HERMILA Chacon 01/23/23 16:03: [facility] declined pt. [facility] will not accept any pt. that smokes and the [facility] has no opening. Pt.'s information was sent to [facility] swing bed. Original Note: Spoke with pt.'s daughter Alejandra cell#[phone], w#[phone] to discuss discharge plans. Alejandra wants pt. to discharge for rehab to [facility]. Alejandra runs the swing bed program at [place]. Referral to be made to [facility] at fax# [phone], Alejandra's work # [phone]. If pt. will not have a 3-day Med A stay she wants pt. assessed for a longterm in [place]. [facility] may have a bed available.
[2023-01-23 11:29] VITALS: BP 154/76; PULSE 111; RESP 18; TEMP 36.3; O2SAT 91
[2023-01-23] MEDS: 0.9 % SODIUM CHLORIDE 1000 ml 1,000 ML 75 ML IV (12:36)
--- NOTE | 2023-01-23 14:44 | PC.NURSE ---
End of shift. pt has been very pleasant. right arm and left leg pain. x ray of leg done. Cast to right wrist/lower arm. active ice is on. teds on and off CMS to right fingers intact, no edema noted. Bruising noted to bilateral upper and lower extremities, bruising noted laterally and medially. Nagel catheter patent. Encouraged patient to drink fluids. Pain reported at 5/10, po pain meds given wth relief. all other pain meds gives pt a rash and she does not want them. she stood with PT
[2023-01-23 15:00] VITALS: BP 158/71; PULSE 90; PULSE 92; RESP 18; TEMP 37.1; O2SAT 90
--- NOTE | 2023-01-23 15:32 | PM.ORCN ---
History of Present Illness HPI Time Seen by Provider: 03:00 Date Seen: 01/23/23 Consult date: 01/23/23 Requesting physician: Marco Monge Consult reason: fracture Chief complaint: Fall with multiple fractures Narrative: Hamida is a very pleasant 78-year-old young lady who fell yesterday on 01/22/2023 getting out of bed around 730 in the morning. She got entangled in her sheets and fell out of bed landing on the floor. She remained on the floor until 12 30 in the afternoon. She was unable to get up from the floor. She had right thigh pain and groin pain and right wrist pain. She denies loss of consciousness. She denies numbness or tingling in her right lower extremity or right upper extremity. She feels overall well. She was found to have right superior pubic ramus fracture extending into the anterior acetabulum and minimally displaced inferior pubic ramus fracture and right comminuted distal radius fracture that was reduced in the emergency room and splinted. Review of Systems Narrative: Patient denies nausea, vomiting, fever, chills, chest pain, shortness of breath PFSH FOR[facility]LY [facility] Medical History History of failure to thrive syndrome ?Z87.898 - Personal history of other specified conditions (ICD-10) History of malnutrition ?Z86.39 - Personal history of other endocrine, nutritional and metabolic disease (ICD-10) Tricuspid regurgitation ?I07.1 - Rheumatic tricuspid insufficiency (ICD-10) Pulmonary hypertension ?I27.20 - Pulmonary hypertension, unspecified (ICD-10) Heart failure with reduced ejection fraction ?I50.20 - Unspecified systolic (congestive) heart failure (ICD-10) Closed fracture of left humerus ?S42.302A - Unspecified fracture of shaft of humerus, left arm, initial encounter for closed fracture (ICD-10) Closed fracture of second lumbar vertebra ?S32.029A - Unspecified fracture of second lumbar vertebra, initial encounter for closed fracture (ICD-10) Closed compression fracture of thoracic vertebra ?S22.000A - Wedge compression fracture of unspecified thoracic vertebra, initial encounter for closed fracture (ICD-10) Closed fracture of cuboid bone ?S92.213A - Displaced fracture of cuboid bone of unspecified foot, initial encounter for closed fracture (ICD-10) Closed fracture of 5th metacarpal ?S62.308A - Unspecified fracture of other metacarpal bone, initial encounter for closed fracture (ICD-10) Chronic alcoholism in remission ?F10.21 - Alcohol dependence, in remission (ICD-10) Osteopenia ?M85.80 - Other specified disorders of bone density and structure, unspecified site (ICD-10) Macrocytic anemia ?D53.9 - Nutritional anemia, unspecified (ICD-10) Right sacral radiculopathy ?M54.18 - Radiculopathy, sacral and sacrococcygeal region (ICD-10) Hyperlipidemia ?E78.5 - Hyperlipidemia, unspecified (ICD-10) COPD (chronic obstructive pulmonary disease) with chronic bronchitis ?J44.9 - Chronic obstructive pulmonary disease, unspecified (ICD-10) Tobacco use disorder ?F17.200 - Nicotine dependence, unspecified, uncomplicated (ICD-10) Essential hypertension ?I10 - Essential (primary) hypertension (ICD-10) Surgical History S/P tubal ligation ?Z98.51 - Tubal ligation status (ICD-10) Status post rotator cuff repair ?Z98.890 - Other specified postprocedural states (ICD-10) History of femoral hernia repair ?Z98.890 - Other specified postprocedural states (ICD-10) ?Z87.19 - Personal history of other diseases of the digestive system (ICD-10) Status post appendectomy ?Z90.49 - Acquired absence of other specified parts of digestive tract (ICD-10) Status post cholecystectomy ?Z90.49 - Acquired absence of other specified parts of digestive tract (ICD-10) History of bladder suspension procedure ?Z98.890 - Other specified postprocedural states (ICD-10) ?Z87.448 - Personal history of other diseases of urinary system (ICD-10) Status post lumbar spine surgery for decompression of spinal cord ?Z98.890 - Other specified postprocedural states (ICD-10) Family History Sister Breast cancer Mother Heart disease Father High blood pressure Prostate cancer Brother Prostate cancer Social History Narrative: Currently lives in an assisted living setting. Daughter, Alejandra Echevarria, is her designated power of family law attorney for health, and her cell phone number is [phone]. Patient requests full resuscitation in the event of cardiopulmonary demise. Dr. Mcgraw is her primary care physician. What is your current living situation?: I presently have a place to live Problems where you live: no known problems Problems where you live details: NA In the past 12 months, utilities in danger of being shut off: no In the past 12 mos, have been you worried that your food would run out before you had money to buy more?: never true In the past 12 mos, the food you bought just didn't last and you didn't have money to buy more?: never true Highest level of school completed/degree received: high school graduate Smoking Status: Current every day smoker What tobacco products do you use: cigarettes Do you use any of these nicotine containing products: None Second hand tobacco smoke exposure: No How often do you have a drink containing alcohol: 4 or more times a week Alcohol type: beer and wine Alcohol type details: drinks 1/2 can of beer or cup of wine daily How many standard drinks containing alcohol do you have on a typical day: 1 or 2 How often do you have six or more drinks on one occasion: Never AUDIT-C Alcohol total score: 4 Non-prescribed substance use: denies use Caffeine: No How often does anyone, including family, friends and others, physically hurt you: never How often does anyone, including family, friends and others, insult or talk down to you: never How often does anyone, including family, friends and others, threaten you with harm: never How often does anyone, including family, friends and others, scream or curse at you: never service: No Meds Home Medications and Allergies Home Medications Medication Instructions Recorded Confirmed Type atorvastatin 40 mg tablet 40 mg PO HS 01/22/23 01/22/23 History furosemide 20 mg tablet 20 mg PO DAILY 01/22/23 01/22/23 History metoprolol succinate 50 mg 50 mg PO DAILY 01/22/23 01/22/23 History tablet,extended release 24 hr mirtazapine 15 mg tablet 15 mg PO HS 07/31/23 07/31/23 History Allergies Allergy/AdvReac Type Severity Reaction Status Date / Time hydrocodone Allergy Verified 01/22/23 14:55 Penicillins Allergy Verified 01/22/23 14:55 tramadol Allergy Verified 01/22/23 14:55 Ortho Exam Narrative Exam Narrative: Examination of the right lower extremity shows no erythema or warmth or sign of infection. CMS is intact. Quad strength 5/5 on the right. She is able to plantar flex and dorsiflex the right ankle and great toe against resistance. The foot is warm. Capillary refill is less than 2 seconds. Pedal pulses are faint. With gentle log-rolling of her right lower extremity she does not have pain in the hip. Examination of the right upper extremity show no decreased sensation in the right upper extremity. She is able to fully extend and fully flex her fingers. She is examined in a splint. The splint Patrick bandage was a bit tight around her thumb and this is removed and and replaced a bit looser. No pain at the elbow. Ecchymosis is present about the wrist, for again see a glimpse of ecchymosis as I unwrapped the Patrick bandage. The splint is not too tight. The Cotton is not too tight About the wrist and hand. Const Vital Signs, click to edit/add: Vital Signs - 24 hr 01/22/23 15:51 01/22/23 16:00 01/22/23 16:02 Temperature Pulse Rate 95 93 91 Pulse Rate [Pulse Oximeter] Respiratory Rate Blood Pressure 163/82 H Blood Pressure [Right Arm] Pulse Oximetry 95 96 96 Oxygen Delivery Method Room Air 01/22/23 16:15 01/22/23 16:30 01/22/23 16:31 Temperature Pulse Rate 103 H 95 103 H Pulse Rate [Pulse Oximeter] Respiratory Rate Blood Pressure 152/85 H Blood Pressure [Right Arm] Pulse Oximetry 97 97 98 Oxygen Delivery Method 01/22/23 16:45 01/22/23 17:00 01/22/23 17:27 Temperature Pulse Rate 99 103 H 96 Pulse Rate [Pulse Oximeter] Respiratory Rate Blood Pressure Blood Pressure [Right Arm] Pulse Oximetry 96 94 96 Oxygen Delivery Method 01/22/23 17:30 01/22/23 17:45 01/22/23 18:04 Temperature Pulse Rate 93 94 103 H Pulse Rate [Pulse Oximeter] Respiratory Rate Blood Pressure Blood Pressure [Right Arm] Pulse Oximetry 94 94 92 Oxygen Delivery Method 01/22/23 18:11 01/22/23 18:15 01/22/23 18:53 Temperature Pulse Rate 100 102 H 102 H Pulse Rate [Pulse Oximeter] Respiratory Rate Blood Pressure 148/74 H Blood Pressure [Right Arm] Pulse Oximetry 93 92 97 Oxygen Delivery Method 01/22/23 19:00 01/22/23 19:15 01/22/23 19:30 Temperature Pulse Rate 101 H 104 H 103 H Pulse Rate [Pulse Oximeter] Respiratory Rate Blood Pressure Blood Pressure [Right Arm] Pulse Oximetry 95 94 95 Oxygen Delivery Method 01/22/23 19:45 01/22/23 20:00 01/22/23 20:20 Temperature 98.3 F Pulse Rate 111 H 111 H Pulse Rate [Pulse Oximeter] 113 H Respiratory Rate 18 Blood Pressure Blood Pressure [Right Arm] 133/62 Pulse Oximetry 94 94 Oxygen Delivery Method 01/22/23 20:20 01/22/23 23:00 01/22/23 23:00 Temperature 97.0 F L Pulse Rate Pulse Rate [Pulse Oximeter] 98 Respiratory Rate 18 18 Blood Pressure Blood Pressure [Right Arm] 150/72 H Pulse Oximetry 96 96 94 Oxygen Delivery Method Room Air Room Air Room Air 01/23/23 03:00 01/23/23 07:40 01/23/23 07:40 Temperature 97.0 F L 97.2 F L Pulse Rate Pulse Rate [Pulse Oximeter] 101 H 119 H Respiratory Rate 17 18 18 Blood Pressure Blood Pressure [Right Arm] 130/60 151/84 H Pulse Oximetry 96 92 92 Oxygen Delivery Method Room Air Room Air Room Air 01/23/23 07:40 01/23/23 11:29 Temperature 97.3 F L Pulse Rate Pulse Rate [Pulse Oximeter] 119 H 111 H Respiratory Rate 18 18 Blood Pressure Blood Pressure [Right Arm] 154/76 H Pulse Oximetry 91 Oxygen Delivery Method Room Air Results Labs Labs: Laboratory Results - last 48 hr 01/22/23 01/22/23 01/22/23 16:12 16:12 16:12 WBC 19.29 H RBC 3.98 L Hgb 13.7 Hct 40.3 MCV 101 H MCH 34 MCHC 34 RDW Coeff of Denise 12.5 Plt Count 257 Neut % (Auto) 82.7 H Lymph % (Auto) 8.8 L Cannon % (Auto) 7.9 Eos % (Auto) 0.0 Baso % (Auto) 0.1 Neut # (Auto) 16.00 H Lymph # (Auto) 1.70 Cannon # (Auto) 1.50 H Eos # (Auto) 0.00 Baso # (Auto) 0.00 Abs Immat Gran (auto) 0.10 Imm/Tot Granulo (auto) 0.5 Sodium 135 Potassium 3.9 Chloride 94 L Carbon Dioxide 30 BUN 12 Creatinine 0.5 Estimated Creat Clear 42.39 Estimated GFR 97 Glucose 153 H Lactate 4.6 H* Calcium 9.0 Total Bilirubin 1.5 Cancelled Direct Bilirubin 0.1 Cancelled AST 41 H ALT Alkaline Phosphatase Total Creatine Kinase C-Reactive Protein Total Protein Albumin Urine Color Urine Appearance Urine pH Ur Specific Watson Urine Protein Urine Glucose (UA) Urine Ketones Urine Blood Urine Nitrite Urine Bilirubin Urine Urobilinogen Ur Leukocyte Esterase Urine RBC Urine WBC Ur Squamous Epith Cells Urine Bacteria 01/22/23 01/22/23 01/22/23 16:12 16:12 16:12 WBC RBC Hgb Hct MCV MCH MCHC RDW Coeff of Denise Plt Count Neut % (Auto) Lymph % (Auto) Cannon % (Auto) Eos % (Auto) Baso % (Auto) Neut # (Auto) Lymph # (Auto) Cannon # (Auto) Eos # (Auto) Baso # (Auto) Abs Immat Gran (auto) Imm/Tot Granulo (auto) Sodium Potassium Chloride Carbon Dioxide BUN Creatinine Estimated Creat Clear Estimated GFR Glucose Lactate Calcium Total Bilirubin Direct Bilirubin AST Cancelled ALT 25 Cancelled Alkaline Phosphatase 84 Cancelled Total Creatine Kinase 226 H C-Reactive Protein Total Protein 7.3 Albumin Urine Color Urine Appearance Urine pH Ur Specific Watson Urine Protein Urine Glucose (UA) Urine Ketones Urine Blood Urine Nitrite Urine Bilirubin Urine Urobilinogen Ur Leukocyte Esterase Urine RBC Urine WBC Ur Squamous Epith Cells Urine Bacteria 01/22/23 01/22/23 01/22/23 16:12 16:12 17:20 WBC RBC Hgb Hct MCV MCH MCHC RDW Coeff of Denise Plt Count Neut % (Auto) Lymph % (Auto) Cannon % (Auto) Eos % (Auto) Baso % (Auto) Neut # (Auto) Lymph # (Auto) Cannon # (Auto) Eos # (Auto) Baso # (Auto) Abs Immat Gran (auto) Imm/Tot Granulo (auto) Sodium Potassium Chloride Carbon Dioxide BUN Creatinine Estimated Creat Clear Estimated GFR Glucose Lactate Calcium Total Bilirubin Direct Bilirubin AST ALT Alkaline Phosphatase Total Creatine Kinase C-Reactive Protein Total Protein Cancelled Albumin 4.3 Cancelled Urine Color Yellow Urine Appearance Turbid A Urine pH 8.5 Ur Specific Watson 1.015 Urine Protein 2+ A Urine Glucose (UA) Negative Urine Ketones Negative Urine Blood Trace-intact A Urine Nitrite Negative Urine Bilirubin Negative Urine Urobilinogen 0.2 Ur Leukocyte Esterase 1+ A Urine RBC 0-2 Urine WBC 25-50 A Ur Squamous Epith Cells Few Urine Bacteria Many A 01/22/23 01/23/23 21:02 05:52 WBC 13.22 H RBC 3.39 L Hgb 11.8 L Hct 35.4 MCV 104 H MCH 35 H MCHC 33 RDW Coeff of Denise 12.8 Plt Count 218 Neut % (Auto) 77.5 H Lymph % (Auto) 14.1 L Cannon % (Auto) 7.9 Eos % (Auto) 0.0 Baso % (Auto) 0.2 Neut # (Auto) 10.20 H Lymph # (Auto) 1.90 Cannon # (Auto) 1.00 H Eos # (Auto) 0.00 Baso # (Auto) 0.00 Abs Immat Gran (auto) 0.00 Imm/Tot Granulo (auto) 0.3 Sodium 135 Potassium 3.7 Chloride 100 Carbon Dioxide 29 BUN 12 Creatinine 0.5 Estimated Creat Clear 42.39 Estimated GFR 97 Glucose 158 H Lactate 3.0 H 1.8 Calcium 8.0 L Total Bilirubin Direct Bilirubin AST ALT Alkaline Phosphatase Total Creatine Kinase 215 H C-Reactive Protein 7.7 H Total Protein Albumin Urine Color Urine Appearance Urine pH Ur Specific Watson Urine Protein Urine Glucose (UA) Urine Ketones Urine Blood Urine Nitrite Urine Bilirubin Urine Urobilinogen Ur Leukocyte Esterase Urine RBC Urine WBC Ur Squamous Epith Cells Urine Bacteria Assessment and Plan Assessment and plan (1) Fall: Problem comment: - mechanical Status: Acute Total time spent: Total time spent is greater than 50% in coordination of care (as documented) at patient's floor/unit and/or counseling patient: (2) Closed pelvic fracture: Problem comment: - CT scan of pelvis on 01/22/23: Acute, minimally displaced fracture of the right superior pubic ramus extending into the anterior acetabulum. Minimally displaced fracture of the right inferior pubic ramus. Status: Acute Assessment and Plan: Recommend DVT prophylaxis Bobby stockings 23 hours per day, aspirin 81 mg b.i.d. for 1 month. Pain medication p.r.n..Recommend weight-bearing when tolerated on the right lower extremity. OT and PT daily at half-way facility Total time spent: Total time spent is greater than 50% in coordination of care (as documented) at patient's floor/unit and/or counseling patient: (3) Right wrist fracture: Problem comment: - Right wrist XR on 01/22/2023: Acute, impacted, transverse, moderately angulated fracture of the distal radius Acute, impacted, mildly displaced, oblique fracture of the base of the ulnar styloid Status: Acute Assessment and Plan: Dr. Kruse did a great job reducing this wrist in the emergency room last night. Plan for the wrist is to leave this current splint on, keep it clean and dry for the next week and re-x-ray in [address] Jim Mon's recommendation. If the fracture displaces, perc pinning verses ORIF would be an option. If wrist fracture stays in its current position, does not shortened, and if swelling is appropriate a short-arm cast can be applied next week. I have encouraged her to work on range of motion of her fingers daily fully extending the fingers and fully flexing them in the splint. No weight-bearing with the right upper extremity. Note, dictation performed with voice recognition, and as a result, wrong word or sound like substitutions may have occurred. There may be areas in the script that have gone on detected. Please consider this when interpreting information found in the chart. Total time spent: Total time spent is greater than 50% in coordination of care (as documented) at patient's floor/unit and/or counseling patient: (4) UTI (urinary tract infection): Problem comment: - + UA, culture pending - Ceftriaxone initiated 01/22 Status: Acute Total time spent: Total time spent is greater than 50% in coordination of care (as documented) at patient's floor/unit and/or counseling patient: (5) Osteoporosis: Problem comment: - Fall from standing with multiple fractures - Certainly patient would benefit from consideration for initiation of treatment for osteoporosis in the outpatient setting Status: Acute Total time spent: Total time spent is greater than 50% in coordination of care (as documented) at patient's floor/unit and/or counseling patient: (6) Physical debility: Problem comment: - therapies following Status: Acute Total time spent: Total time spent is greater than 50% in coordination of care (as documented) at patient's floor/unit and/or counseling patient: (7) Wheezing: Problem comment: - noted on exam 01/23, patient not having any chest pain or dyspnea. + smoker - RT referral placed Status: Acute Total time spent: Total time spent is greater than 50% in coordination of care (as documented) at patient's floor/unit and/or counseling patient: (8) Tachycardia: Problem comment: - sinus, possibly related to pain (patient refusing to take anything beyond Tylenol 650mg BID), dehydration (urine appears concentrated, + UA) - low dose IVFs, hold Furosemide, continue Metoprolol, continue to follow Status: Acute Total time spent: Total time spent is greater than 50% in coordination of care (as documented) at patient's floor/unit and/or counseling patient: (9) Ovarian mass, right: Problem comment: - seen on admission imaging - noted in 2021 per chart review, patient has seen Gynecology as an outpatient Status: Acute Total time spent: Total time spent is greater than 50% in coordination of care (as documented) at patient's floor/unit and/or counseling patient:
[2023-01-23] MEDS: cefTRIAXone 1 GM in 0.9 % SODIUM CHLORIDE Mini-bag 100 ML IVPB (17:56)
[2023-01-23] MEDS: OXYCODONE 5 MG TABLET 2.5 MG PO (18:00)
[2023-01-23 19:00] VITALS: BP 141/70; PULSE 102; RESP 18; TEMP 37; O2SAT 89
[2023-01-23] MEDS: ATORVASTATIN CALCIUM 40 MG TABLET PO (21:05)
[2023-01-23] MEDS: MIRTAZAPINE 15 MG TABLET PO (21:05)
[2023-01-23] MEDS: ENOXAPARIN 30 MG/0.3ML INJ SUBCUT (21:05)
[2023-01-23] MEDS: 0.9 % SODIUM CHLORIDE 1000 ml 1,000 ML 100 ML IV (23:22)
[2023-01-24] VITALS (8 sets, daily range): BP systolic 119–195; BP diastolic 71–91; PULSE 101–126; RESP 18–20; TEMP 35.9–36.9; O2SAT 89–94
[2023-01-24] MEDS: OXYCODONE 5 MG TABLET 2.5 MG PO (04:23)
[2023-01-24 06:26] LABS: Ionized Calcium* 1.11 mmol/L (1.11-1.30)
[2023-01-24 06:27] LABS: Basophils Percent Auto 0.2 % (0.0-3.0); Eosinophils Percent Auto 0.8 % (0.0-7.0); Hematocrit 31.5 % (33.0-51.0); Hemoglobin* 10.2 gm/dL (12.0-16.0); Mean Corpuscular HGB Conc 32 gm/dL (32-36); Mean Corpuscular Hemoglobin 34 pg (26-34); Mean Corpuscular Volume 106 fL (80-100); Monocytes Percent Auto 7.9 % (0.0-11.0); Neutrophils Percent Auto 75.1 % (42.0-72.0); Platelet Count* 175 K/uL (140-440); RDW Coefficient of Variation % 12.9 % (11.5-15.5); Red Blood Count 2.98 m/uL (4.00-5.20); White Blood Count* 11.42 K/uL (4.50-11.00)
[2023-01-24 06:30] LABS: Slide Review Reflex No
--- NOTE | 2023-01-24 06:42 | PC.NURSE ---
Shift note: Pt rates pain 8-9/10 in her shoulder, RN treated per eMAR with relief to 3-4/10. Nagel intact and draining, pt is afebrile
[2023-01-24 06:46] LABS: Chloride* 102 mmol/L (96-114)
[2023-01-24 06:47] LABS: Potassium* 3.3 mmol/L (3.6-5.1); Sodium* 135 mmol/L (135-149)
[2023-01-24 06:49] LABS: Creatinine* 0.5 mg/dL (0.5-1.5); Est. Creatinine Clearance* 42.39; Estimated Glomerular Filt Rate 97 ml/min
[2023-01-24 06:50] LABS: Alanine Aminotransferase* 17 U/L (4-35); Alkaline Phosphatase* 76 U/L (40-150); Aspartate Amino Transferase* 28 U/L (12-35); Bilirubin Total* 0.6 mg/dL (0.1-1.5); Blood Urea Nitrogen* 9 mg/dL (7-30); Calcium* 7.9 mg/dL (8.4-10.6); Carbon Dioxide* 30 mmol/L (20-32); Glucose* 156 mg/dL (60-115); Magnesium* 1.5 mg/dL (1.5-2.6); Total Protein* 5.8 g/dL (6.0-8.3)
[2023-01-24 07:15] LABS: C Reactive Protein* 14.3 mg/dL (0.5-1.0)
[2023-01-24] MEDS: ACETAMINOPHEN 325 MG TABLET 650 MG PO ×4 (08:01→21:14)
[2023-01-24] MEDS: OXYCODONE 5 MG TABLET PO ×3 (08:02→14:21)
[2023-01-24] MEDS: METOPROLOL SUCCINATE (XL) 100 MG TAB PO (09:04)
[2023-01-24] MEDS: SENNOSIDES/DOCUSATE TABLET 1 TAB PO (09:04)
[2023-01-24] MEDS: ASPIRIN 81 MG TAB.CHEW PO ×2 (09:37→21:18)
[2023-01-24] MEDS: 0.9 % SODIUM CHLORIDE 1000 ml 1,000 ML 100 ML IV ×2 (09:37→21:17)
--- NOTE | 2023-01-24 10:54 | P.IMPN_ITS ---
Progress Note: A&P Assessment and plan (1) Fall: Problem details: - mechanical Status: Acute (2) Closed pelvic fracture: Problem details: - CT scan of pelvis on 01/22/23: Acute, minimally displaced fracture of the right superior pubic ramus extending into the anterior acetabulum. Minimally displaced fracture of the right inferior pubic ramus. Status: Acute (3) Right wrist fracture: Problem details: - Right wrist XR on 01/22/2023: Acute, impacted, transverse, moderately angulated fracture of the distal radius Acute, impacted, mildly displaced, oblique fracture of the base of the ulnar styloid Status: Acute (4) UTI (urinary tract infection): Problem details: - + UA, culture pending - Ceftriaxone initiated 01/22 Status: Acute (5) Osteoporosis: Problem details: - Fall from standing with multiple fractures - Certainly patient would benefit from consideration for initiation of ana cristina tment for osteoporosis in the outpatient setting Status: Acute (6) Physical debility: Problem details: - therapies following, will require SNF stay upon discharge Status: Acute (7) Wheezing: Problem details: - noted on exam 01/23, patient not having any chest pain or dyspnea. + smoker, likely COPD - requiring intermittent low dose supplemental oxygen - RT following Status: Acute (8) Tachycardia: Problem details: - sinus, possibly related to pain and/or dehydration. Hgb 10.2, no evidence of acute bleeding. Patient asymptomatic - Metoprolol increased 8/2, holding Lasix, low dose IVFs given decreased UOP, follow renal function, lytes, and Hgb Status: Acute (9) Ovarian mass, right: Problem details: - seen on admission imaging - noted in 2021 per chart review, patient has seen Gynecology as an outpatient Status: Acute Plan - per above - ASA for ppx - awaiting SNF placement Subjective Date Seen: 01/24/23 Interval history: Hamida was admitted 01/22 after a fall at home. She has a splinted fracture of her R radius/ulna, in addition to a fracture of R inferior pubic ramus. Requiring intermittent low dose supplemental oxygen per nasal cannula, no cough, dyspnea, or CP. She has been hesitant to take more pain medication, but tolerated low dose Oxycodone overnight, so amenable to trying a higher dose of that today. No other concerns for the hospitalist team, we continue to await SNF placement. Exam Narrative: Exam Narrative: GEN: Alert and oriented in bed, nontoxic HEENT: EOMIs bilaterally, no scleral icterus CV: RRR (heart rate in the 90s during my exam), no concerning murmurs R: LCTA bilaterally today, no wheezing noted Ext: wwp, no concerning edema, wearing brace RUE, + sensation and movement of R fingers Skin: Bruising and abrasions to RUE and RLE, no other concerning skin lesions or rashes on exposed skin Neuro: Nonfocal Psych: Appropriate Const: Vital Signs, click to edit/add: Vital Signs - 24 hr 01/23/23 11:29 01/23/23 15:00 01/23/23 15:00 Temperature 97.3 F L Pulse Rate [Pulse Oximeter] 111 H 90 Respiratory Rate 18 18 18 Blood Pressure [Ri ght Arm] 154/76 H Pulse Oximetry 91 90 Oxygen Delivery Me thod Room Air Room Air Oxygen Flow Rate 01/23/23 15:00 01/23/23 19:00 01/24/23 00:15 Temperature 98.8 F 98.6 F Pulse Rate [Pulse Oximeter] 92 102 H Respiratory Rate 18 18 Blood Pressure [Ri ght Arm] 158/71 H 141/70 H Pulse Oximetry 90 89 94 Oxygen Delivery Me thod Room Air Room Air Room Air Oxygen Flow Rate 01/24/23 00:15 01/24/23 03:00 01/24/23 08:00 Temperature 98.5 F 98.3 F Pulse Rate [Pulse Oximeter] 106 H 110 H Respiratory Rate 20 20 18 Blood Pressure [Ri ght Arm] 156/76 H 169/87 H Pulse Oximetry 94 92 89 Oxygen Delivery Me thod Room Air Nasal Cannula Room Air Oxygen Flow Rate 1 01/24/23 08:00 01/24/23 08:00 Temperature 96.7 F L Pulse Rate [Pulse Oximeter] 101 H 101 H Respiratory Rate 20 20 Blood Pressure [Ri ght Arm] 195/91 H Pulse Oximetry 89 Oxygen Delivery Me thod Room Air Oxygen Flow Rate Labs Labs: Laboratory Results - last 24 hr 01/24/23 05:48 WBC 11.42 H RBC 2.98 L Hgb 10.2 L Hct 31.5 L MCV 106 H MCH 34 MCHC 32 RDW Coeff of Denise 12.9 Plt Count 175 Neut % (Auto) 75.1 H Lymph % (Auto) 15.0 L Taylor % (Auto) 7.9 Eos % (Auto) 0.8 Baso % (Auto) 0.2 Neut # (Auto) 8.60 H Lymph # (Auto) 1.70 Taylor # (Auto) 0.90 Eos # (Auto) 0.10 Baso # (Auto) 0.00 Abs Immat Gran (auto) 0.10 Imm/Tot Granulo (auto) 1.0 Sodium 135 Potassium 3.3 L Chloride 102 Carbon Dioxide 30 BUN 9 Creatinine 0.5 Estimated Creat Clear 42.39 Estimated GFR 97 Glucose 156 H Calcium 7.9 L Ionized Calcium Lizandro 1.11 Magnesium 1.5 Total Bilirubin 0.6 AST 28 ALT 17 Alkaline Phosphatase 76 C-Reactive Protein 14.3 H Total Protein 5.8 L Albumin 3.0 L
[2023-01-24] MEDS: POTASSIUM BICARB 25 MEQ EFFERVESCENT TAB PO ×2 (12:43→14:21)
--- NOTE | 2023-01-24 14:43 | PC.NURSE ---
end of shift. pt has been very pleasant. right arm and left leg pain. Cast to right wrist/lower arm. active ice is on. teds on and off CMS to right hand intact, no edema noted. Bruising noted to bilateral upper and lower extremities, bruising noted laterally and medially. Nagel cath patent. Encouraged patient to drink fluids. Pain reported at 5/10, po pain meds given wth relief. she is getting po oxy with no problems. . she stood with PT and was in chair. HR increased after pt was placed in chair and md was updated and ekg was ordered once pt was in bed. HR ws regular when it increased in the chair. when back in bed it was noted on EKG it was A-fib and md was updated and tele was ordered.
[2023-01-24] MEDS: METOPROLOL TARTRATE 25 MG TABLET PO ×2 (14:52→19:45)
--- NOTE | 2023-01-24 14:52 | PC.SOCIAL ---
Updated information sent to [facility] swing bed program. They can accept pt. to their swingbed program or Sunday. Pt.'s daughter Alejandra wants a stretcher transport. Yohannes at [facility] can transport pt. either day. Updated pt.'s daughter Alejandra on the $400 cost and that [facility] prefers a check. Alejandra will have a check ready for [facility] upon patient's arrival at [place]. Alejandra will call in the am when the provider determines if the can accept pt. or Sunday.
[2023-01-24] MEDS: MAGNESIUM IV 2 GM/50 ML PIGGYBACK IVPB (14:53)
[2023-01-24] MEDS: cefTRIAXone 1 GM in 0.9 % SODIUM CHLORIDE Mini-bag 100 ML IVPB (18:23)
--- NOTE | 2023-01-24 18:36 | PC.NURSE ---
End of Shift: Patient pleasant and cooperative. Patient vitally stable, lungs clear, BS WNL, IV running NS at 100. Patient has been tachy in the 120's metoprolol given once by previous before midshift handoff. Patient 2 assist, pivot transfer to chair. Patient tolerating regular diet, lemus draining and intact. Patient tele is tachy. Patient rated pain 5/10, scheduled tylenol given.
[2023-01-24] MEDS: MIRTAZAPINE 15 MG TABLET PO (21:14)
[2023-01-24] MEDS: ATORVASTATIN CALCIUM 40 MG TABLET PO (21:17)
[2023-01-25] VITALS (10 sets, daily range): BP systolic 135–174; BP diastolic 66–110; PULSE 68–133; RESP 18–28; TEMP 36.3–36.8; O2SAT 91–96
[2023-01-25] MEDS: METOPROLOL TARTRATE 25 MG TABLET PO ×2 (02:08→06:50)
[2023-01-25] MEDS: 0.9 % SODIUM CHLORIDE 1000 ml 1,000 ML 100 ML IV (06:15)
--- NOTE | 2023-01-25 06:18 | PC.NURSE ---
Shift note: Pt is alert and oriented, condition stable. Tolerating pain very which was rated at 2 and 3. Urine output is low (150ml). No sediment or blood in urine. Iv N/S running at 100ml/hr. Ambulate with A2. Vitally stable. Able to move both upper and lower extremities, wiggle right fingers and adequate blood flow. Pt had adequate sleep.
[2023-01-25 06:37] LABS: Eosinophils Percent Auto 1.6 % (0.0-7.0); Hematocrit 31.5 % (33.0-51.0); Hemoglobin* 10.1 gm/dL (12.0-16.0); Lymphocytes Percent Auto 26.7 % (20-44); Mean Corpuscular HGB Conc 32 gm/dL (32-36); Mean Corpuscular Hemoglobin 34 pg (26-34); Mean Corpuscular Volume 107 fL (80-100); Monocytes Percent Auto 8.2 % (0.0-11.0); Neutrophils Percent Auto 61.8 % (42.0-72.0); Platelet Count* 181 K/uL (140-440); Red Blood Count 2.94 m/uL (4.00-5.20); White Blood Count* 9.35 K/uL (4.50-11.00)
[2023-01-25 06:38] LABS: Basophils Absolute Auto 0.02 K/uL (0.00-0.30); Basophils Percent Auto 0.2 % (0.0-3.0); Eosinophils Absolute Auto 0.15 K/uL (0.00-0.50); Immature Granulocytes Abs Auto 0.14 K/uL (0.00-0.30); Immature Granulocytes Pct Auto 1.5 %; Neutrophils Absolute Auto 5.77 K/uL (1.7-7.0)
[2023-01-25 06:39] LABS: Slide Review Reflex No
[2023-01-25 06:59] LABS: Chloride* 104 mmol/L (96-114); Potassium* 3.8 mmol/L (3.6-5.1); Sodium* 135 mmol/L (135-149)
[2023-01-25 07:02] LABS: Blood Urea Nitrogen* 9 mg/dL (7-30); Carbon Dioxide* 29 mmol/L (20-32); Creatinine* 0.4 mg/dL (0.5-1.5); Est. Creatinine Clearance* 42.39; Estimated Glomerular Filt Rate 102 ml/min; Glucose* 137 mg/dL (60-115)
[2023-01-25 07:03] LABS: Calcium* 8.1 mg/dL (8.4-10.6)
--- NOTE | 2023-01-25 08:00 | CRLHL7_ITS ---
For Patients: As a result of the Century Cures Act, medical imaging exams and procedure reports are released immediately into your electronic medical record. You may view this report before your referring provider. If you have questions, please contact your health care provider. INDICATION: Wheezing TECHNIQUE: Chest 1 view COMPARISON: 01/23/2023 FINDINGS: Mild bronchial wall thickening noted within right lung with a trace right effusion possible. No dense consolidation. Mediastinum unchanged. No pneumothorax. Chronic changes of the right shoulder. IMPRESSION: Mild bronchiolitis suspected on the right. Dictated by Sudhakar Soares MD @ 01/25/2023 9:29:09 AM (Electronically Signed)
[2023-01-25] MEDS: ACETAMINOPHEN 325 MG TABLET 650 MG PO ×4 (08:43→20:40)
[2023-01-25] MEDS: METOPROLOL SUCCINATE (XL) 100 MG TAB PO (08:44)
[2023-01-25] MEDS: ASPIRIN 81 MG TAB.CHEW PO (08:44)
--- NOTE | 2023-01-25 08:53 | P.IMPN_ITS ---
Progress Note: A&P Assessment and plan (1) Fall: Problem details: - mechanical, therapies following; will require SNF upon discharge Status: Acute (2) Closed pelvic fracture: Problem details: - CT scan of pelvis on 01/22/23: Acute, minimally displaced fracture of the right superior pubic ramus extending into the anterior acetabulum. Minimally displaced fracture of the right inferior pubic ramus. Status: Acute (3) Right wrist fracture: Problem details: - Right wrist XR on 01/22/2023: Acute, impacted, transverse, moderately angulated fracture of the distal radius Acute, impacted, mildly displaced, oblique fracture of the base of the ulnar styloid Status: Acute (4) Tachycardia: Problem details: - sinus on admission, Hgb 10.2, no evidence of acute bleeding. Patient asymptomatic - Metoprolol increased 01/24, Diltiazem added 01/25 - repeat EKG 01/24 exhibited a fib with RVR (see below) Status: Acute (5) Atrial fibrillation with RVR: Problem details: - NEW, noted on 01/24/23 EKG - CHADsVasc2 score of 4, CrCL >40 - Apixiban initiated 01/25, Lasix RESTARTED 01/25 (had been held postoperatively) - TTE ordered 01/25 - 01/25: on 100mg XL Metoprolol, scheduled IR Diltiazem Q6H and HR <100 Status: Acute (6) UTI (urinary tract infection): Problem details: - + UA, Klebsiella on culture - Ceftriaxone initiated 01/22 Status: Acute (7) Ovarian mass, right: Problem details: - seen on admission imaging, patient aware (not a new finding) - noted in 2021 per chart review, patient has seen Gynecology as an outpatient Status: Acute Plan - per above - start Apixaban for ppx (stopping ASA) - daughter Alejandra updated by phone, questions answered - will need TTE results and medication/HR stability prior to SNF placement (1-2 more days) Subjective Date Seen: 01/25/23 Interval history: Hamida was admitted 01/22 after a fall at home, resulting in a fracture of her R radius/ulna, in addition to a fracture of R inferior pubic ramus. Yesterday, she was persistently tachycardic despite an increase in her Metoprolol and increased fluid volume; EKG revealed a fib with RVR. Hamida denies CP or palpitations. She is amenable to initiation of Apixaban. Pain is currently controlled. She has not pooped for 3-4 days; amenable to more aggressive bowel regimen today. Exam Narrative: Exam Narrative: GEN: Alert and sitting comfortably in bedside chair HEENT: EOMIs bilaterally, no scleral icterus CV: Heart rate in the 90s during my exam, regular R: LCTA bilaterally without concerning wheezing, air movement is adequate Ab: Soft, mild distension, no tenderness to palpation Ext: wwp, no concerning edema Skin: No changes to bruising noted on left side of body Neuro: Nonfocal Psych: Appropriate Const: Vital Signs, click to edit/add: Vital Signs - 24 hr 01/24/23 11:11 01/24/23 15:00 01/24/23 15:00 Temperature 97.1 F L Pulse Rate 126 H Pulse Rate [Pulse Oximeter] 125 H Respiratory Rate 18 Blood Pressure [Ri ght Arm] 119/80 Pulse Oximetry 90 90 Oxygen Delivery Me thod Room Air Nasal Cannula Oxygen Flow Rate 1 01/24/23 15:00 01/24/23 15:00 01/24/23 19:00 Temperature 97.7 F 97.2 F L Pulse Rate Pulse Rate [Pulse Oximeter] 123 H 123 H 123 H Respiratory Rate 20 20 20 Blood Pressure [Ri ght Arm] 132/71 121/75 Pulse Oximetry 90 93 Oxygen Delivery Me thod Nasal Cannula Nasal Cannula Oxygen Flow Rate 1 1 01/24/23 20:51 01/24/23 23:00 01/24/23 23:00 Temperature Pulse Rate 120 H Pulse Rate [Pulse Oximeter] 126 H Respiratory Rate 18 18 Blood Pressure [Ri ght Arm] Pulse Oximetry 92 Oxygen Delivery Me thod Nasal Cannula Oxygen Flow Rate 1 01/24/23 23:00 01/25/23 02:15 01/25/23 07:20 Temperature 97.2 F L 97.3 F L 98.2 F Pulse Rate Pulse Rate [Pulse Oximeter] 126 H 128 H 127 H Respiratory Rate 18 18 24 Blood Pressure [Ri ght Arm] 136/84 154/95 H Pulse Oximetry 92 92 96 Oxygen Delivery Me thod Nasal Cannula Nasal Cannula Room Air Oxygen Flow Rate 1 1 01/25/23 07:20 01/25/23 07:24 Temperature Pulse Rate 126 H Pulse Rate [Pulse Oximeter] Respiratory Rate 24 Blood Pressure [Ri ght Arm] Pulse Oximetry 96 Oxygen Delivery Me thod Room Air Oxygen Flow Rate 0 Labs Labs: Laboratory Results - last 24 hr 01/25/23 06:09 WBC 9.35 RBC 2.94 L Hgb 10.1 L Hct 31.5 L MCV 107 H MCH 34 MCHC 32 RDW Coeff of Denise 13.0 Plt Count 181 Neut % (Auto) 61.8 Lymph % (Auto) 26.7 [place] % (Auto) 8.2 Eos % (Auto) 1.6 Baso % (Auto) 0.2 Neut # (Auto) 5.77 Lymph # (Auto) 2.50 [place] # (Auto) 0.80 Eos # (Auto) 0.15 Baso # (Auto) 0.02 Abs Immat Gran (auto) 0.14 Imm/Tot Granulo (auto) 1.5 Sodium 135 Potassium 3.8 Chloride 104 Carbon Dioxide 29 BUN 9 Creatinine 0.4 L Estimated Creat Clear 42.39 Estimated GFR 102 Glucose 137 H Calcium 8.1 L
[2023-01-25] MEDS: SODIUM CHLORIDE 0.9 % (FLUSH) 10 ML SYRINGE 5 ML IVF ×2 (10:11→15:04)
[2023-01-25] MEDS: dilTIAZem 30 MG TABLET PO ×3 (10:11→23:13)
[2023-01-25] MEDS: FUROSEMIDE 10 MG/ML inj 20 MG IVP (10:11)
[2023-01-25] MEDS: SENNOSIDES/DOCUSATE TABLET 1 TAB PO (10:11)
--- NOTE | 2023-01-25 10:13 | PC.SOCIAL ---
Pt. is not medically ready for discharge today. Daughter Alejandra wants an update in the morning on Sunday at W#[phone] if pt. is medically ready. Alejandra will give the phone number for N to N report and where orders need to be faxed to for swing bed at [facility]. Yohannes at [facility] [phone] has pt. set for 10am stretcher slate picker tom, 01/26. He needs a call in the am right away if pt. is not medically ready or needs a different transport time as his Fridays book up.
[2023-01-25 11:50] LABS: Vitamin B12* 856 pg/mL (243-894)
[2023-01-25] MEDS: dilTIAZem 180 MG CAP (CD) PO (12:54)
[2023-01-25] MEDS: METOPROLOL TARTRATE 1 MG/ML inj 5 MG IVP (15:04)
--- NOTE | 2023-01-25 17:31 | PC.NURSE ---
Pt calm, pleasant, and cooperative during shift. Pt had no complaints of pain during shift. Pt assist of 2 with gait belt and walker. Pt up to chair during shift. Pt?s heart rate elevated and went into AFib mid-morning; hospitalist notified. Pt?s respirations increased during shift; sepsis risk 3 x on shift was flagged physicians notified. See EMAR for interventions. Pt?s ECHO canceled for today per hospitalist and will be rescheduled for?tomorrow. Dressing on Pt's left knee changed mid afternoon. Pt's arm elevated through out shift and ice applied per Pt request.
[2023-01-25] MEDS: bisacodyL 10 MG SUPP.RECT PR (17:43)
[2023-01-25] MEDS: cefTRIAXone 1 GM in 0.9 % SODIUM CHLORIDE Mini-bag 100 ML IVPB (17:43)
[2023-01-25] MEDS: MIRTAZAPINE 15 MG TABLET PO (20:39)
[2023-01-25] MEDS: ATORVASTATIN CALCIUM 40 MG TABLET PO (20:40)
[2023-01-25] MEDS: APIXABAN 5 MG TABLET PO (20:40)
[2023-01-25] MEDS: MELATONIN 3 MG TABLET PO (23:13)
[2023-01-26] VITALS (7 sets, daily range): BP systolic 142–180; BP diastolic 60–96; PULSE 71–87; RESP 17–22; TEMP 36.1–36.6; O2SAT 90–96
[2023-01-26] MEDS: OXYCODONE 5 MG TABLET PO ×3 (03:31→21:01)
[2023-01-26] MEDS: dilTIAZem 30 MG TABLET PO ×4 (05:17→22:41)
--- NOTE | 2023-01-26 05:47 | PC.NURSE ---
End of Shift: Patient pleasant and cooperative throughout shift, AOx3. Ambulates with SBAx2, walker, and gaitbelt. Reporting pain between 0-4/10 in hip, shoulder and right wrist. Nagel catheter remained in placed, patent, draining well. One BM, incontinent. Pt reports feeling anxious stating it feels like things are closing in on me. Unable to sleep throughout the night, up in chair and repositioning helped with anxiousness.
[2023-01-26] MEDS: METOPROLOL TARTRATE 25 MG TABLET PO (05:59)
[2023-01-26 06:20] LABS: Basophils Absolute Auto 0.03 K/uL (0.00-0.30); Basophils Percent Auto 0.3 % (0.0-3.0); Eosinophils Absolute Auto 0.14 K/uL (0.00-0.50); Eosinophils Percent Auto 1.5 % (0.0-7.0); Hematocrit 32.9 % (33.0-51.0); Hemoglobin* 10.8 gm/dL (12.0-16.0); Immature Granulocytes Abs Auto 0.17 K/uL (0.00-0.30); Immature Granulocytes Pct Auto 1.8 %; Lymphocytes Absolute Auto 2.03 K/uL (0.90-2.90); Lymphocytes Percent Auto 21.4 % (20-44); Mean Corpuscular HGB Conc 33 gm/dL (32-36); Mean Corpuscular Hemoglobin 35 pg (26-34); Mean Corpuscular Volume 106 fL (80-100); Monocytes Percent Auto 9.4 % (0.0-11.0); Neutrophils Absolute Auto 6.24 K/uL (1.7-7.0); Neutrophils Percent Auto 65.6 % (42.0-72.0); Platelet Count* 221 K/uL (140-440); RDW Coefficient of Variation % 12.8 % (11.5-15.5)
[2023-01-26 06:23] LABS: Slide Review Reflex No
[2023-01-26 06:36] LABS: Chloride* 100 mmol/L (96-114)
[2023-01-26 06:37] LABS: Potassium* 3.4 mmol/L (3.6-5.1); Sodium* 136 mmol/L (135-149)
[2023-01-26 06:39] LABS: Creatinine* 0.4 mg/dL (0.5-1.5); Est. Creatinine Clearance* 42.39; Estimated Glomerular Filt Rate 102 ml/min
[2023-01-26 06:40] LABS: Blood Urea Nitrogen* 8 mg/dL (7-30); Calcium* 8.6 mg/dL (8.4-10.6); Carbon Dioxide* 30 mmol/L (20-32); Glucose* 156 mg/dL (60-115)
--- NOTE | 2023-01-26 07:44 | PM.IMPN1 ---
Progress Note: A&P Assessment and plan (1) Atrial fibrillation with RVR: Problem details: - NEW, noted on 01/24/23 EKG - CHADsVasc2 score of 4, CrCL >40 - Apixiban initiated 01/25, Lasix RESTARTED 01/25 (had been held postoperatively) - 01/25: on 100mg XL Metoprolol, Dilt XR 180 daily. PRN Lopressor 25mg q6h for HR >110 - RVR resolved evening of 01/26 Status: Acute (2) Atrial fibrillation: Problem details: New finding 01/26/23 RVR noted 01/24-01/25 rate controlled and on OAC at discharge echo 01/26 showed: Status: Acute (3) Fall: Problem details: - mechanical, therapies following; accepted to [facility] swing bed for SNF then plan is to return to assisted living apartment in . Status: Acute (4) Closed pelvic fracture: Problem details: - CT scan of pelvis on 01/22/23: Acute, minimally displaced fracture of the right superior pubic ramus extending into the anterior acetabulum. Minimally displaced fracture of the right inferior pubic ramus. per ortho Recommend DVT prophylaxis Bobby stockings 23 hours per day, aspirin 81 mg b.i.d. for 1 month. Pain medication p.r.n..Recommend weight-bearing when tolerated on the right lower extremity. OT and PT daily at residential facility. okay for easy stand on the wrist fracture; no weight bearing on the wrist however. Status: Acute (5) Right wrist fracture: Problem details: - Right wrist XR on 01/22/2023: Acute, impacted, transverse, moderately angulated fracture of the distal radius Acute, impacted, mildly displaced, oblique fracture of the base of the ulnar styloid per ortho: plan for the wrist is to leave this current splint on, keep it clean and dry until the next ortho appt 01/30. If the fracture displaces, perc pinning verses ORIF would be an option. If wrist fracture stays in its current position, does not shortened, and if swelling is appropriate a short-arm cast can be applied next week. Status: Acute (6) UTI (urinary tract infection): Problem details: - + UA, Klebsiella on culture - Ceftriaxone initiated 01/22, transitioned to Keflex for five days upon discharge Status: Acute (7) Osteoporosis: Problem details: - Fall from standing with multiple fractures - Certainly patient would benefit from consideration for initiation of treatment for osteoporosis in the outpatient setting Status: Acute (8) Physical debility: Problem details: - therapies following, will require SNF stay upon discharge Status: Acute (9) Ovarian mass, right: Problem details: - seen on admission imaging, patient aware (not a new finding) - noted in 2021 per chart review, patient has seen Gynecology as an outpatient Status: Acute Subjective Date Seen: 01/26/23 Interval history: splint. Recommend DVT prophylaxis Bobby stockings 23 hours per day, aspirin 81 mg b.i.d. for 1 month. Pain medication p.r.n..Recommend weight-bearing when tolerated on the right lower extremity. OT and PT daily at residential facilityNo weight-bearing with the right upper extremity.\ Exam Const: Vital Signs, click to edit/add: Vital Signs - 24 hr 01/25/23 11:30 01/25/23 14:28 01/25/23 14:28 Temperature 97.7 F 97.8 F Pulse Rate Pulse Rate [Pulse Oximeter] 124 H 133 H Respiratory Rate 24 28 H 28 H Blood Pressure [Ri ght Arm] 135/66 137/81 Pulse Oximetry 95 92 92 Oxygen Delivery Me thod Room Air Room Air Room Air Oxygen Flow Rate 01/25/23 14:45 01/25/23 15:20 01/25/23 19:00 Temperature 98.1 F Pulse Rate 131 H Pulse Rate [Pulse Oximeter] 133 H 82 Respiratory Rate 24 Blood Pressure [Ri ght Arm] 138/69 Pulse Oximetry 92 Oxygen Delivery Me thod Room Air Oxygen Flow Rate 01/25/23 23:00 01/25/23 23:00 01/25/23 23:00 Temperature Pulse Rate 68 Pulse Rate [Pulse Oximeter] 108 H Respiratory Rate 22 22 Blood Pressure [Ri ght Arm] Pulse Oximetry 91 Oxygen Delivery Me thod Room Air Oxygen Flow Rate 0 01/25/23 23:00 01/26/23 03:00 Temperature 97.6 F 97.6 F Pulse Rate Pulse Rate [Pulse Oximeter] 108 H 87 Respiratory Rate 22 22 Blood Pressure [Ri ght Arm] 174/110 H 167/60 H Pulse Oximetry 91 94 Oxygen Delivery Me thod Room Air Room Air Oxygen Flow Rate 0 Labs Labs: Laboratory Results - last 24 hr 01/25/23 01/25/23 01/26/23 06:09 06:09 05:27 WBC 9.50 RBC 3.10 L Hgb 10.8 L Hct 32.9 L MCV 106 H MCH 35 H MCHC 33 RDW Coeff of Denise 12.8 Plt Count 221 Neut % (Auto) 65.6 Lymph % (Auto) 21.4 [place] % (Auto) 9.4 Eos % (Auto) 1.5 Baso % (Auto) 0.3 Neut # (Auto) 6.24 Lymph # (Auto) 2.03 [place] # (Auto) 0.90 Eos # (Auto) 0.14 Baso # (Auto) 0.03 Abs Immat Gran (auto) 0.17 Imm/Tot Granulo (auto) 1.8 Sodium 136 Potassium 3.4 L Chloride 100 Carbon Dioxide 30 BUN 8 Creatinine 0.4 L Estimated Creat Clear 42.39 Estimated GFR 102 Glucose 156 H Calcium 8.6 Vitamin B12 856 TSH 3.020 Lab Acknowledgement Test Added Test Added
[2023-01-26] MEDS: ACETAMINOPHEN 325 MG TABLET 650 MG PO ×4 (08:36→21:02)
[2023-01-26] MEDS: APIXABAN 5 MG TABLET PO ×2 (08:36→21:01)
[2023-01-26] MEDS: METOPROLOL SUCCINATE (XL) 100 MG TAB PO (08:36)
[2023-01-26] MEDS: SODIUM CHLORIDE 0.9 % (FLUSH) 10 ML SYRINGE 5 ML IVF ×2 (08:38→21:03)
--- NOTE | 2023-01-26 09:35 | P.DS_ITS ---
DS: Providers Provider Date Seen: 01/26/23 Date of admission: 01/22/23 23:16 Primary care physician: Smita Mcgraw MD Admitting Clinician: Marco Monge MD Consults: 01/22/23 21:33 Consult to Physical Therapy [CONS] Routine Comment: Reason(s) for PT Consult:: Evaluate and Treat Any Restrictions?:: See Comment Comment: weight bearing as tolerated Consult to Fuel Tank Sealer And Tester [CONS] Routine Comment: Reason for Consult:: Discharge Planning Needs 01/22/23 21:35 Consult to Occupational Therapy [CONS] Routine Comment: Reason(s) for OT Consult:: Evaluate and Treat Any Restrictions?:: See Comment Comment: weight bearing as tolerated 01/22/23 22:22 Consult to Physical Therapy [CONS] Routine Comment: Reason(s) for PT Consult:: Recent Falls Any Restrictions?:: Non Wt Bearing 01/23/23 00:27 Consult to Physician [CONS] Routine Comment: Consulting Provider: Sergey López Has provider been notified: Yes 01/23/23 09:38 Consult to Respiratory Therapy [CONS] Routine Comment: Reason(s) for RT Consult:: Consult Comment: wheezing, COPD history Attending Physician on discharge[facility]: 01/26/23 DS: Diagnosis Discharge Diagnosis (1) Fall: Status: Acute Problem details: - 01/22/23. Mechanical. R wrist fracture, 2 pelvic fractures. - PT & OT following; accepted to [place] swing bed for SNF then plan is to return to assisted living apartment in [place]. (2) Closed pelvic fracture: Status: Acute Problem details: - CT scan of pelvis on 01/22/23: Acute, minimally displaced fracture of the right superior pubic ramus extending into the anterior acetabulum. Minimally displaced fracture of the right inferior pubic ramus. Per orthopedics Recommend DVT prophylaxis Bobby stockings 23 hours per day, apixiban 2.5mg BID for 30 days (unless AFIB were to return). Weight-bearing as tolerated on the right lower extremity. OT and PT daily at longterm facility. Okay to use platform walker on the wrist fracture; no weight bearing on the right wrist however. (3) Right wrist fracture: Status: Acute Problem details: - Right wrist XR on 01/22/2023: Acute, impacted, transverse, moderately angulated fracture of the distal radius Acute, impacted, mildly displaced, oblique fracture of the base of the ulnar styloid per ortho: plan for the wrist is to leave this current splint on, keep it clean and dry until the next ortho appt 01/30. If the fracture displaces, perc pinning verses ORIF would be an option. If wrist fracture stays in its current position, does not shortened, and if swelling is appropriate a short-arm cast can be applied next week. (4) Atrial fibrillation with RVR: Status: Acute Problem details: - NEW, noted on 01/24/23 EKG - CHADsVasc2 score of 4, CrCL >40 - Apixiban initiated 01/25, Lasix RESTARTED 01/25 (had been held postoperatively) - 01/25: on 100mg XL Metoprolol, Dilt XR 180 daily. PRN Lopressor 25mg q6h for HR >110 - RVR resolved evening of 01/26 (5) Atrial fibrillation: Status: Acute Problem details: (RESOLVED - likely 07/27 the fall, the fractures, UTI) New finding 01/24/23 RVR noted 01/24-01/25 converted 01/26/23 echo 01/26 showed: no major concerns (final report still pending) (6) Ovarian mass, right: Status: Acute Problem details: - noted on admission imaging, patient aware (not a new finding) - noted in 2021 per chart review, patient has seen Gynecology as an outpatient (7) Physical debility: Status: Acute Problem details: - therapies following, will require SNF stay upon discharge (8) UTI (urinary tract infection): Status: Acute Problem details: - + UA, Klebsiella on culture - Ceftriaxone initiated 01/22, transitioned to Keflex for five days upon discharge DS: Summary Hospital Course Hospital Course: HOSPITALIST DISCHARGE SUMMARY ATTENDING PHYSICIAN: Amie Mon MD FINAL DIAGNOSIS: RIGHT WRIST FRACTURE PELVIC FRACTURES AFIB WITH RVR (RESOLVED) UTI HOSPITAL FOLLOWUP ISSUES: 1. Ortho - final disposition on wrist (on or about 01/30/23) 2. PCP - follow up UTI, AFIB finding while inpatient, and oral anticoagulation decision after 30 days REFERRALS WHILE ADMITTED: Physical therapy, occupational therapy, social work, orthopedics REFERRALS AFTER DISCHARGE: Continued physical and occupational therapy BRIEF HOSPITAL COURSE: 78-year-old Hamida fell in her assisted living apartment. She sustained a right wrist fracture nondisplaced pelvic fractures. The wrist was splinted, she is weight-bearing on her hips as tolerated with a platform walker. No was consulted. They would like to follow the fracture in her wrist non operatively at least for the next week. It has not yet been determined if she will need percutaneous pinning or and ORIF. Her pelvis should heal without operative intervention. Her pain is controlled with scheduled Tylenol and p.r.n. oxycodone. She did develop AFib with RVR. This was controlled with oral metoprolol and diltiazem. She converted back to sinus rhythm, spontaneously, on 01/26/23. While her formal echo report is still pending there were no significant findings. Secondary to of the AFib development and her increased risk for blood clot given her fractures, we decided to anticoagulate her for 1 month with apixaban 2.5 mg b.i.d.. We did not discharge her on aspirin. She was also found to have an UTI. This grew a nearly pansensitive Klebsiella. She initially had IV ceftriaxone and this was switched to oral Keflex prior to discharge. She does have a Paiz catheter in place at the time of discharge. This was needed secondary to the intense pain she had with up and down movements. She is also on Lasix which increases her need to urinate. Her Paiz catheter can be discontinued as soon as her pain has improved and hopefully before her antibiotic is finished. She was accepted at [facility] swing bed unit and will return to her assisted living apartment in [place] when rehab is complete. Follow-up should include a PCP visit to determine if AFib returned and to review anticoagulation and echocardiogram findings. Follow-up should also include Orthopedics for a follow-up wrist x-ray on or about the January. SUBSTANTIVE NOTATIONS ON IMAGING, LAB, MICROBIOLOGY/PATHOLOGY STUDIES: Hip CT Acute, minimally displaced fracture of the right superior pubic ramus extending into the anterior acetabulum. Minimally displaced fracture of the right inferior pubic ramus. No definite sacral fracture. 4.4 x 3.8 x 3.7 cm partially calcified cystic mass in the right adnexa. This is suspicious for an ovarian neoplasm. Recommend outpatient pelvic MRI for further characterization, if not previously performed. THIS IS NOT NEW, PATIENT HAS BEEN AWARE. RIGHT HIP Acute, impacted, transverse, moderately angulated fracture of the distal radius. Acute, impacted, mildly displaced, oblique fracture of the base of the ulnar styloid. DISCHARGE MEDICATIONS: See Reconciled list - SIGNIFICANT CHANGES: APIXABAN 2.5MG BID ADDING DILTIAZEM 120MG XR INCREASED METOPROLOL TO 100MG XL SHORT DOSE OF KEFLEX 500MG BID REVIEW OF SYSTEMS No new chest pain or dyspnea Pain controlled HAS A PAIZ CATHETER Tolerating diet challenge PHYSICAL EXAM: CONSTITUTIONAL: alert, fairly good historian, good sense of humor. VITAL SIGNS: see record. HEENT: Normocephalic, atraumatic. PERRL, EOMI, conjunctivae pink, no scleral icterus. Ears and nose externally normal. Pharynx normal. NECK: No JVD. No carotid bruit, no thyromegaly, no adenopathy. CHEST: Clear to auscultation bilaterally. HEART: S1 and S2 normal. Edema ABDOMEN: Soft, nontender. Normal bowel sounds. MUSCULOSKELETAL: wrapped right UE - splinted. dry. NEURO: Cranial nerves intact. Grossly intact. No asymmetric findings. SKIN: No rashes, petechiae, concerning changes PSYCHIATRIC: Mood euthymic. DISPOSITION: Swing Bed SNF for acute rehab. Time spent on discharge 37 minutes. Status at Discharge Functional status at discharge: uses cane/walker Overall status at discharge: patient is progressing back to baseline Time Spent with Patient Time attestation: Total time spent providing and/or coordinating discharge services: Time spent: Greater than 30 minutes Exam Const: Vital Signs, click to edit/add: Vital Signs - 24 hr 01/25/23 11:30 01/25/23 14:28 01/25/23 14:28 Temperature 97.7 F 97.8 F Pulse Rate Pulse Rate [Pulse Oximeter] 124 H 133 H Respiratory Rate 24 28 H 28 H Blood Pressure [Ri ght Arm] 135/66 137/81 Pulse Oximetry 95 92 92 Oxygen Delivery Me thod Room Air Room Air Room Air Oxygen Flow Rate 01/25/23 14:45 01/25/23 15:20 01/25/23 19:00 Temperature 98.1 F Pulse Rate 131 H Pulse Rate [Pulse Oximeter] 133 H 82 Respiratory Rate 24 Blood Pressure [Ri ght Arm] 138/69 Pulse Oximetry 92 Oxygen Delivery Me thod Room Air Oxygen Flow Rate 01/25/23 23:00 01/25/23 23:00 01/25/23 23:00 Temperature Pulse Rate 68 Pulse Rate [Pulse Oximeter] 108 H Respiratory Rate 22 22 Blood Pressure [Ri ght Arm] Pulse Oximetry 91 Oxygen Delivery Me thod Room Air Oxygen Flow Rate 0 01/25/23 23:00 01/26/23 03:00 Temperature 97.6 F 97.6 F Pulse Rate Pulse Rate [Pulse Oximeter] 108 H 87 Respiratory Rate 22 22 Blood Pressure [Ri ght Arm] 174/110 H 167/60 H Pulse Oximetry 91 94 Oxygen Delivery Me thod Room Air Room Air Oxygen Flow Rate 0 DS: Data Data Completed and Pending Labs on day of discharge: Labs from last 24 hours 01/26/23 01/25/23 01/25/23 05:27 06:09 06:09 WBC 9.50 RBC 3.10 L Hgb 10.8 L Hct 32.9 L MCV 106 H MCH 35 H MCHC 33 RDW Coeff of Denise 12.8 Plt Count 221 Neut % (Auto) 65.6 Lymph % (Auto) 21.4 [place] % (Auto) 9.4 Eos % (Auto) 1.5 Baso % (Auto) 0.3 Neut # (Auto) 6.24 Lymph # (Auto) 2.03 [place] # (Auto) 0.90 Eos # (Auto) 0.14 Baso # (Auto) 0.03 Abs Immat Gran (auto) 0.17 Imm/Tot Granulo (auto) 1.8 Sodium 136 Potassium 3.4 L Chloride 100 Carbon Dioxide 30 BUN 8 Creatinine 0.4 L Estimated Creat Clear 42.39 Estimated GFR 102 Glucose 156 H Calcium 8.6 Vitamin B12 856 RBC Fol Fidel for Serum Pending TSH 3.020 Lab Acknowledgement Test Added Test Added Preliminary micro results at discharge 01/22/23 18:27 Blood Culture - Preliminary Blood NO GROWTH AFTER 72 HOURS 01/22/23 18:27 Blood Culture - Preliminary Blood NO GROWTH AFTER 72 HOURS Discharge Plan Discharge Disposition: Xfer [facility] Date of Admission: 01/22/23 23:16 Attending Provider on Discharge: Danya Nunez Consulting Providers: Sravan Mon Primary Care Provider: Smita Mcgraw Discharge Medications: New metoprolol succinate 100 mg Tablet Extended Release 24 Hr 100 mg PO DAILY Qty: 30 0RF acetaminophen 325 mg Tablet 650 mg PO QID Qty: 360 0RF bisacodyl 10 mg Suppository 10 mg UT DAILY PRNQty: 2 0RF metoprolol tartrate 25 mg Tablet 25 mg PO Q6H PRN (Reason: tachycardia) Qty: 60 0RF Rx Instructions: For Heart Rates >110. Patient must have a systolic blood pressure greater than 110 for dose to be given ondansetron 4 mg Tablet,Disintegrating 4 mg PO Q6H PRNQty: 30 0RF oxycodone 5 mg Tablet 2.5 - 5 mg PO Q2H PRNQty: 30 0RF cephalexin 500 mg capsule 500 mg PO BID Qty: 10 0RF Eliquis 2.5 mg tablet 2.5 mg PO BID Qty: 60 0RF diltiazem HCl [DILT-XR] 120 mg capsule,ext.rel 24h degradable 120 mg PO DAILY Qty: 30 0RF Continued atorvastatin 40 mg tablet 40 mg PO HS furosemide 20 mg tablet 20 mg PO DAILY mirtazapine 15 mg tablet 15 mg PO HS Discontinued metoprolol succinate 50 mg tablet extended release 24 hr 50 mg PO DAILY Discharge Orders: Discharge Order (Routine); Ordered 01/26/23 Ordered By: Amie Mon Additional Instructions: 1. New fractures after fall: right wrist/pelvis. Pain is significant on the right hip. pelvic fractures are not needing any surgery. the wrist will be xrayed next week and decision is TBD regarding a pinning or surgery. Pain management: ice prn, scheduled Tylenol (not prn), prn oxycodone. 2. AFIB. this is new during this hospitalization. Likely due to the fall, the fracture and UTI. She converted back to Sinus on 01/26. Please observe for reoccurrence. She has prn metoprolol for tachycardia. She will be on one month of anticoagulation because of high risk for AFIB to return and blood clots from fracture/fall/immobility. 3. UTI. culture grew Klebsiella. She received IV Rocephin, and now is on Keflex twice a day for five days. 4. She has a Paiz for ease of movement and pain management. This can be discontinued as soon as her pain has improved enough to move to bedside commode. Goal would be to have this discontinued before antibiotics are finished. Activity Level: Activity as Tolerated Activity Restrictions: weight bearing as tolerated; ok to use wrist with platform walker - 1 assist. Discharge Diet: Regular Follow Up Appointments: Sravan Mon MD [Staff Physician] - 01/30/23 Smita Mcgraw MD [Primary Care Provider] - Discharge Comments: PT and OT at longterm facility daily Return to Orthopedics in 1 week for recheck of right wrist and x-rays with Dr. Mon or other orthopedic provider. Admit to: SNF Discharge Potential: Fair Length of Stay: 30-90 days Can use facility standing orders?: Yes Code Status: Full Code TEDs: Bilateral Knee Rehab Potential: Good Therapy: Physical Therapy and Occupational Therapy Therapy Orders: Evaluate and Treat Oxygen: No Orders are good >30 days: Yes
[2023-01-26] MEDS: cephALEXin 500 MG CAPSULE PO ×2 (10:48→21:02)
[2023-01-26] MEDS: FUROSEMIDE 10 MG/ML inj 20 MG IVP (11:37)
--- NOTE | 2023-01-26 13:28 | PC.SOCIAL ---
Received a phone call from pt's daughter Alejandra ([phone]) stating that [facility] is unable to accept pt until Sunday, since pt was not able to come to their facility yesterday. Alejandra would like this worker to set up a medical transport (wheelchair) for Sunday. Phone call to Williams Nair ([phone]) at [facility] to request transportation. Transport will transport pt on Sunday and will arrive to [facility] between 10:00 am - 10:30 am. Sent written request via e-mail to [email or web address]. Williams will reach out to pt's daughter for payment. Provided update to charge nurse. Received a request from [facility] for updated progress and therapy notes for pt. Faxed all updated notes to [facility] at [phone]. Provided update to pt's daughter by leaving voicemail. Social work will follow up as needed.
--- NOTE | 2023-01-26 17:49 | PC.NURSE ---
shift note: vss stable. pt up 1/ tri pod walker to surfaces. pt rating rt wrist and rt pelvic pain as high as 10 with movement this a.m. pt medicated with oxycodone x1 and scheduled tylenol with pain level maintaining 4/10 with movement and 0/10 while sitting still. Rt finder cap refill intact. fingers to rt hand swollen and elevated on 2 pillows. Ice applied to rt soft cast. mariah patent. pt had exp wheezing this a.m with dim LS. sats 90-92% RA. Pt using IS to 750. drsg to lt knee c.d.i
[2023-01-26 18:52] LABS: Folate, Serum 4.7 ng/mL (>=5.9)
[2023-01-26] MEDS: ATORVASTATIN CALCIUM 40 MG TABLET PO (21:02)
[2023-01-26] MEDS: MIRTAZAPINE 15 MG TABLET PO (21:02)
[2023-01-27] VITALS (10 sets, daily range): BP systolic 164–191; BP diastolic 72–100; PULSE 80–90; RESP 18–20; TEMP 36.2–36.6; O2SAT 88–94
[2023-01-27] MEDS: dilTIAZem 30 MG TABLET PO (05:46)
--- NOTE | 2023-01-27 06:51 | PC.NURSE ---
Patient having increased confusion throughout the evening and night. patient found attmepting to get out of bed at 2100, stating that she is going to her apartment stating i need to pick out my clothes for when I go to the other place also asking writer producer are you going to reconnect that while pointing to catheter tubing attached to the leg strap patient easily reoriented and redirected regarding going to her apartment and showing patient catheter was intact and connected. Reporting increased dizziness at that time as well, BP 166/90 O2 sat 94%, updated Dr. Nunez with confusion and dizziness, no new orders at this time. Nagel catheter patent, draining clear yellow urine. At 0300 writer producer found patient attempting to get out of bed again, stating I'm going to the store, patient easily reoriented to that she is in the hospital. Pain reported to right wrist and right hip, pain managed well with PRN oxycodone at 2100, ice packs and scheduled tylenol. Man[employer] Development Specialist Manager updated Dr. Nunez at 0630 regarding continued intermittent episodes of acute confusion. Right wrist/arm elevated on pillows, CMS intact to fingers, edema to fingers continue.
[2023-01-27] MEDS: ACETAMINOPHEN 325 MG TABLET 650 MG PO ×4 (08:10→21:32)
--- NOTE | 2023-01-27 08:23 | P.IMPN_ITS ---
Progress Note: A&P Assessment and plan (1) Atrial fibrillation with RVR: Problem details: - NEW, noted on 01/24/23 EKG - CHADsVasc2 score of 4, CrCL >40 - Apixiban initiated 01/25, Lasix RESTARTED 01/25 (had been held postoperatively) - 01/25: on 100mg XL Metoprolol, Dilt XR 180 daily with excellent rate control - RVR resolved evening of 01/26, converted to SR later on 01/26 Final Impressions: 1. Normal left ventricular size, moderately increased wall thickness, normal global systolic function, calculated EF of 61 %. 2. Right ventricular cavity size is normal, global systolic RV function is normal. 3. The mitral valve is normal, mild mitral regurgitation. 4. Moderate tricuspid regurgitation, the estimated right ventricular systolic pressure is 48 mmHg plus right atrial pressure. 5. The inferior vena cava is dilated, respiratory size variation less than 50%. Comparison Compared to prior exam report of 08/18/2022, there has been no significant change. Status: Acute (2) Fall: Problem details: - 01/22/23. Mechanical. R wrist fracture, 2 pelvic fractures - PT & OT following; accepted to [facility] swing bed for SNF then plan is to return to assisted living apartment in Status: Acute (3) Essential hypertension: Problem details: - 01/27: on Metoprolol 100mg XL, Diltiazem 180mg ER, Lasix 20mg. SBP consistently >170 - adding Amlodipine 5mg 01/27 Status: Acute (4) UTI (urinary tract infection): Problem details: - + UA, Klebsiella on culture - Ceftriaxone initiated 01/22, transitioned to oral Keflex on 01/26 Status: Acute (5) Delirium: Problem details: - noted 01/26 in the pm, patient was aware of confused state - likely related to hospital stay, may have MCI - no focal neurological deficits, continue to follow Status: Acute (6) Ovarian mass, right: Problem details: - noted on admission imaging, patient aware (not a new finding) - noted in 2021 per chart review, patient has seen Gynecology as an outpatient Status: Acute Plan - per above - Eliquis for ppx - plan for SNF placement Sunday - remove catheter tomorrow Subjective Date Seen: 01/27/23 Interval history: Hamida was supposed to d/c to rehab yesterday; unfortunately, lost her bed there and will remain in the hospital over the weekend. Overnight, she had some confusion without any focal neurological deficits (concern for delirium). This morning, she remembers feeling confused. She has no chest pain, breathing concerns. Vital signs reassuring with the exception of elevated blood pressure. She is very hesitant to remove her Nagel. Today she is transitioning from short-acting (scheduled Q6H) to long-acting diltiazem for her recently diagnosed a fib with RVR. Exam Narrative: Exam Narrative: GEN: Alert and able to discuss her confusion last night, nontoxic in appearance. Clear urine draining from Nagel HEENT: EOMIs bilaterally, no scleral icterus CV: RRR, No concerning murmurs, rubs, or gallops R: LCTA bilaterally without concerning wheezing, rales, or rhonchi Ext: Wearing Bobby hose bilateral lower extremities, RUE brace on Skin: Scattered bruising left side of body, unchanged Neuro: Nonfocal Psych: Appropriate Const: Vital Signs, click to edit/add: Vital Signs - 24 hr 01/26/23 12:30 01/26/23 15:00 01/26/23 15:00 Temperature 97.9 F Pulse Rate Pulse Rate [Pulse Oximeter] 80 83 Respiratory Rate 18 18 18 Blood Pressure [Le ft Arm] Blood Pressure [Ri ght Arm] 142/63 H Pulse Oximetry 94 90 Oxygen Delivery Me thod Room Air Room Air Oxygen Flow Rate 0 01/26/23 15:00 01/26/23 17:18 01/26/23 19:00 Temperature 97.7 F 97.8 F Pulse Rate 77 Pulse Rate [Pulse Oximeter] 83 83 Respiratory Rate 18 18 Blood Pressure [Le ft Arm] Blood Pressure [Ri ght Arm] 165/80 H 149/72 H Pulse Oximetry 90 91 Oxygen Delivery Me thod Room Air Room Air Oxygen Flow Rate 01/26/23 23:00 01/26/23 23:00 01/26/23 23:00 Temperature 97.0 F L Pulse Rate 71 Pulse Rate [Pulse Oximeter] 84 Respiratory Rate 17 Blood Pressure [Le ft Arm] Blood Pressure [Ri ght Arm] 180/96 H Pulse Oximetry 92 92 Oxygen Delivery Me thod Room Air Room Air Oxygen Flow Rate 01/27/23 03:00 01/27/23 07:56 Temperature 97.5 F L 98 F Pulse Rate Pulse Rate [Pulse Oximeter] 82 90 Respiratory Rate 18 20 Blood Pressure [Le ft Arm] 185/88 H Blood Pressure [Ri ght Arm] 164/79 H Pulse Oximetry 93 90 Oxygen Delivery Me thod Room Air Room Air Oxygen Flow Rate Labs Labs: Laboratory Results - last 24 hr 01/25/23 06:09 RBC Fol Fidel for Serum 4.7 L
[2023-01-27] MEDS: FUROSEMIDE 20 MG TABLET PO (09:05)
[2023-01-27] MEDS: cephALEXin 500 MG CAPSULE PO ×2 (09:06→21:33)
[2023-01-27] MEDS: APIXABAN 5 MG TABLET PO ×2 (09:06→21:32)
[2023-01-27] MEDS: dilTIAZem 180 MG CAP (CD) PO (09:06)
[2023-01-27] MEDS: METOPROLOL SUCCINATE (XL) 100 MG TAB PO (09:06)
[2023-01-27] MEDS: SODIUM CHLORIDE 0.9 % (FLUSH) 10 ML SYRINGE 5 ML IVF ×2 (09:06→21:33)
--- NOTE | 2023-01-27 16:31 | PC.NURSE ---
pt BP @ 1630 177/100 p=84 lt arm (automatic); manual 176/84 p=88. pt asymptomatic of elevated BP. pt denies pain. Dr. Ahn notified. awaiting orders
--- NOTE | 2023-01-27 17:58 | PC.NURSE ---
shift note: pt continues to have elevated BP's. Dr. Nunez and Dr. Ahn aware. No further orders at this time. Pt asymptomatic of elevated BP's. pt denies pain. Pt 1/walker for transfers. LS dim. IS to 750. moist non productive cough. sats 88-92% RA. drsg to lt knee c/d/i. rt wrist elevated in soft cast with ice. fingers to rt hand warm with intact cap refill. IV patent lt AC.
[2023-01-27] MEDS: MIRTAZAPINE 15 MG TABLET PO (21:33)
[2023-01-27] MEDS: ATORVASTATIN CALCIUM 40 MG TABLET PO (21:33)
[2023-01-27] MEDS: OXYCODONE 5 MG TABLET PO (23:22)
[2023-01-28] VITALS (9 sets, daily range): BP systolic 150–188; BP diastolic 64–86; PULSE 72–86; RESP 18–20; TEMP 35.9–36.6; O2SAT 89–94
--- NOTE | 2023-01-28 05:24 | PC.NURSE ---
SHIFT NOTE -: Pt VSS on room air with exception of elevated blood pressures of 170's over 70-80's, asymptomatic, MD aware, pt to start new antihypertensive medication today. Tele reads NSR with 1st degree HB. Pt initially pain 8/10, PRN oxycodone given with pt reporting good relief. Nagel patent and draining adequate amounts of urine. Denies CP, SOB, N/V. Pt reports sleeping well.
[2023-01-28 07:06] LABS: Chloride* 95 mmol/L (96-114); Sodium* 135 mmol/L (135-149)
[2023-01-28 07:09] LABS: Blood Urea Nitrogen* 6 mg/dL (7-30); Carbon Dioxide* 35 mmol/L (20-32); Creatinine* 0.5 mg/dL (0.5-1.5); Est. Creatinine Clearance* 42.39; Estimated Glomerular Filt Rate 97 ml/min
[2023-01-28 07:10] LABS: Calcium* 8.5 mg/dL (8.4-10.6); Glucose* 140 mg/dL (60-115)
--- NOTE | 2023-01-28 07:51 | PM.IMPN1 ---
Progress Note: A&P Assessment and plan (1) Atrial fibrillation with RVR: Problem details: - NEW, noted on 01/24/23 EKG - CHADsVasc2 score of 4, CrCL >40 - Apixiban initiated 01/25, Lasix RESTARTED 01/25 (had been held postoperatively) - 01/25: on 100mg XL Metoprolol, Dilt XR 180 daily with excellent rate control - RVR resolved 01/26, converted to SR later on 01/26 Final Impressions: 1. Normal left ventricular size, moderately increased wall thickness, normal global systolic function, calculated EF of 61 %. 2. Right ventricular cavity size is normal, global systolic RV function is normal. 3. The mitral valve is normal, mild mitral regurgitation. 4. Moderate tricuspid regurgitation, the estimated right ventricular systolic pressure is 48 mmHg plus right atrial pressure. 5. The inferior vena cava is dilated, respiratory size variation less than 50%. Comparison Compared to prior exam report of 08/18/2022, there has been no significant change. Status: Acute (2) Fall: Problem details: - 01/22/23. Mechanical. R wrist fracture, 2 pelvic fractures - PT & OT following; accepted to [facility] for SNF then plan is to return to assisted living apartment in Status: Acute (3) Essential hypertension: Problem details: - 01/27: on Metoprolol 100mg XL, Diltiazem 180mg ER, Lasix 20mg. SBP consistently >170 - adding Amlodipine 5mg 01/27 Status: Acute (4) UTI (urinary tract infection): Problem details: - + UA, Klebsiella on culture - Ceftriaxone initiated 01/22, transitioned to oral Keflex (01/26-01/29) Status: Acute (5) Delirium: Problem details: - noted 01/26 in the pm, patient was aware of confused state - likely related to hospital stay, may have MCI - no focal neurological deficits, continue to follow Status: Acute (6) Ovarian mass, right: Problem details: - noted on admission imaging, patient aware (not a new finding) - noted in 2021 per chart review, patient has seen Gynecology as an outpatient Status: Acute (7) Hypokalemia: Problem details: - iatrogenic from Lasix, replace and follow Status: Acute Plan - per above - Eliquis for ppx - anticipate SNF placement tomorrow Subjective Date Seen: 01/28/23 Interval history: Hamida slept well overnight without any recurrent concerns of confusion, has no concerns for hospitalist team today. She is amenable to taking out Nagel catheter today. Her heart rate has remained stable; she is also requesting to DC telemetry day. Pain is controlled on current regimen, no concerns for hospitalist team. We are awaiting SNF placement. Exam Narrative: Exam Narrative: GEN: Alert and oriented, sitting comfortably in bed HEENT: EOMIs bilaterally, no scleral icterus CV: RRR, No concerning murmurs R: LCTA bilaterally without concerning wheezing noted today, air movement is adequate Ext: wwp, no concerning edema, able to move fingers of right hand underneath splint, normal capillary refill Skin: Scattered abrasions and bruising from admission are stable, no new concerning skin lesions or rashes on exposed skin Neuro: No focal deficits or resting tremor, gait not observed Psych: Appropriate Const: Vital Signs, click to edit/add: Vital Signs - 24 hr 01/27/23 07:56 01/27/23 12:21 01/27/23 14:58 Temperature 98 F 97.8 F Pulse Rate 88 Pulse Rate [Pulse Oximeter] 90 82 Respiratory Rate 20 18 Blood Pressure [Le ft Arm] 185/88 H 191/87 H Pulse Oximetry 90 94 Oxygen Delivery Me thod Room Air Room Air Oxygen Flow Rate 01/27/23 15:11 01/27/23 15:11 01/27/23 15:11 Temperature Pulse Rate Pulse Rate [Pulse Oximeter] 82 Respiratory Rate 18 18 Blood Pressure [Le ft Arm] Pulse Oximetry 94 Oxygen Delivery Ca thod Room Air Oxygen Flow Rate 0 0 01/27/23 16:29 01/27/23 19:00 01/27/23 23:00 Temperature 97.1 F L Pulse Rate 84 Pulse Rate [Pulse Oximeter] 84 85 Respiratory Rate 18 18 Blood Pressure [Le ft Arm] 177/100 H 172/79 H Pulse Oximetry 88 93 Oxygen Delivery Ca thod Room Air Room Air Oxygen Flow Rate 01/27/23 23:00 01/27/23 23:00 01/27/23 23:00 Temperature 97.9 F Pulse Rate Pulse Rate [Pulse Oximeter] 85 80 Respiratory Rate 18 18 18 Blood Pressure [Le ft Arm] 178/72 H Pulse Oximetry 92 92 Oxygen Delivery Ca thod Room Air Room Air Oxygen Flow Rate 0 0 01/28/23 03:00 Temperature 97.2 F L Pulse Rate Pulse Rate [Pulse Oximeter] 72 Respiratory Rate 18 Blood Pressure [Le ft Arm] 176/79 H Pulse Oximetry 91 Oxygen Delivery Me thod Room Air Oxygen Flow Rate 0 Labs Labs: Laboratory Results - last 24 hr 01/28/23 05:38 Sodium 135 Potassium 3.0 L Chloride 95 L Carbon Dioxide 35 H BUN 6 L Creatinine 0.5 Estimated Creat Clear 42.39 Estimated GFR 97 Glucose 140 H Calcium 8.5
[2023-01-28] MEDS: POTASSIUM BICARB 25 MEQ EFFERVESCENT TAB PO ×3 (09:06→18:44)
[2023-01-28] MEDS: ACETAMINOPHEN 325 MG TABLET 650 MG PO ×4 (09:07→21:25)
[2023-01-28] MEDS: AMLODIPINE 5 MG TABLET PO (09:07)
[2023-01-28] MEDS: cephALEXin 500 MG CAPSULE PO ×2 (09:07→20:32)
[2023-01-28] MEDS: APIXABAN 5 MG TABLET PO ×2 (09:07→20:33)
[2023-01-28] MEDS: FUROSEMIDE 20 MG TABLET PO (09:07)
[2023-01-28] MEDS: METOPROLOL SUCCINATE (XL) 100 MG TAB PO (09:07)
[2023-01-28] MEDS: dilTIAZem 180 MG CAP (CD) PO (09:07)
--- NOTE | 2023-01-28 17:16 | PC.NURSE ---
shift note: pt up 1/walker/gb. Pt has slight swelling to rt fingers. cap refill intact rt fingers. pt states pain to wrist & rt hip 2-10/02. Pt refused prn oxycodone. Pt using scheduled tylenol for pain with ice & elevation of rt wrist. LS clr/dim bilat. pt using IS to 750-1000 indept x10. Pt has poor appetite. pt states food taste's bad. Dc'd lemus intact this a.m @ 0930 pt has voided in brief moderate amounts and on bsc. IV dc'd intact Lt AC. Tele dc'd. Pt had xlg BM this radha. drsg to Lt inner knee changed. Rt elblow drsg c/d/i
[2023-01-28] MEDS: OXYCODONE 5 MG TABLET PO (18:45)
[2023-01-28] MEDS: ATORVASTATIN CALCIUM 40 MG TABLET PO (20:32)
[2023-01-28] MEDS: MIRTAZAPINE 15 MG TABLET PO (20:32)
[2023-01-28] MEDS: MELATONIN 3 MG TABLET PO (21:25)
[2023-01-29 03:00] VITALS: RESP 16
--- NOTE | 2023-01-29 04:38 | PC.NURSE ---
Pt A&O, pleasant and cooperative. VSS w/ sats>90% on RA. denies pain. A1 w/ walker to commode. Inc x1 urine. bed alarm in place.
[2023-01-29 06:25] LABS: Potassium* 3.4 mmol/L (3.6-5.1)
[2023-01-29 06:28] LABS: Magnesium* 1.5 mg/dL (1.5-2.6)
[2023-01-29 07:00] VITALS: BP 170/75; PULSE 89; RESP 16; TEMP 36; O2SAT 94
--- NOTE | 2023-01-29 07:03 | PC.NURSE ---
Shift note: Pt ambulates with assist of 1 and walker, steady gait, voiding and incontinent of urine.
[2023-01-29] MEDS: APIXABAN 5 MG TABLET PO (07:47)
[2023-01-29] MEDS: ACETAMINOPHEN 325 MG TABLET 650 MG PO (07:48)
[2023-01-29] MEDS: METOPROLOL SUCCINATE (XL) 100 MG TAB PO (07:48)
[2023-01-29] MEDS: POTASSIUM BICARB 25 MEQ EFFERVESCENT TAB PO (07:48)
[2023-01-29] MEDS: FUROSEMIDE 20 MG TABLET PO (07:48)
[2023-01-29] MEDS: cephALEXin 500 MG CAPSULE PO (07:49)
[2023-01-29] MEDS: dilTIAZem 180 MG CAP (CD) PO (07:49)
[2023-01-29] MEDS: AMLODIPINE 5 MG TABLET PO (07:49)
[2023-01-29] MEDS: OXYCODONE 5 MG TABLET PO (07:54)
--- NOTE | 2023-01-29 09:07 | P.DS_ITS ---
DS: Providers Provider Date Seen: 01/29/23 Date of admission: 01/22/23 23:16 Primary care physician: Smita Mcgraw MD Admitting Clinician: Marco Monge MD Attending Physician on discharge: Danya Nunez MD Date of Discharge: 01/29/23 DS: Diagnosis Discharge Diagnosis (1) Fall: Status: Acute Problem details: - 01/22/23. Mechanical. R wrist fracture, 2 pelvic fractures - PT & OT following; accepted to [place] [facility] for SNF then plan is to return to assisted living apartment in (2) Atrial fibrillation with RVR: Status: Acute Problem details: - NEW, noted on 01/24/23 EKG - CHADsVasc2 score of 4, CrCL >40 - Apixiban initiated 01/25, Lasix continued - 01/25: on 100mg XL Metoprolol, Dilt XR 180 daily with excellent rate control - RVR resolved 01/26, converted to SR later on 01/26 Final Impressions: 1. Normal left ventricular size, moderately increased wall thickness, normal global systolic function, calculated EF of 61 %. 2. Right ventricular cavity size is normal, global systolic RV function is normal. 3. The mitral valve is normal, mild mitral regurgitation. 4. Moderate tricuspid regurgitation, the estimated right ventricular systolic pressure is 48 mmHg plus right atrial pressure. 5. The inferior vena cava is dilated, respiratory size variation less than 50%. Comparison Compared to prior exam report of 08/18/2022, there has been no significant change. (3) Essential hypertension: Status: Acute Problem details: - 01/27: on Metoprolol 100mg XL, Diltiazem 180mg ER, Lasix 20mg. SBP consistently >170 - adding Amlodipine 5mg 01/27 (4) UTI (urinary tract infection): Status: Acute Problem details: - + UA, Klebsiella on culture - Ceftriaxone initiated 01/22, transitioned to oral Keflex (01/26-01/29) (5) Delirium: Status: Acute Problem details: - noted 01/26 in the pm, patient was aware of confused state - likely related to hospital stay, may have MCI - no focal neurological deficits, delirium did not return (6) Ovarian mass, right: Status: Acute Problem details: - noted on admission imaging, patient aware (not a new finding) - noted in 2021 per chart review, patient has seen Gynecology as an outpatient (7) Hypokalemia: Status: Acute Problem details: - iatrogenic from Lasix, replace and follow DS: Summary Hospital Course Hospital Course: HOSPITALIST DISCHARGE SUMMARY FINAL DIAGNOSIS: RIGHT WRIST FRACTURE PELVIC FRACTURES AFIB WITH RVR (RESOLVED) UTI (ABX COURSE COMPLETED) DELIRIUM (x1 NIGHT- RESOLVED WITHOUT RECURRENCE) HOSPITAL FOLLOWUP ISSUES: 1. Ortho - final disposition on wrist (on or about 01/30/23) 2. PCP - follow up UTI, AFIB finding while inpatient, and oral anticoagulation decision after 30 days 3. Electrolytes - should have BMP in 5-7 days to assess Potassium. BRIEF HOSPITAL COURSE: 78-year-old Hamida fell in her assisted living apartment. She sustained a right wrist fracture nondisplaced pelvic fractures. The wrist was splinted, she is weight-bearing on her hips as tolerated with a platform walker. She will see Ortho to followup on her wrist fracture in approximately one week; it has not yet been determined if she will need percutaneous pinning or and ORIF. Her pelvis should heal without operative intervention. Her pain is controlled with scheduled Tylenol and p.r.n. oxycodone. She did develop AFib with RVR on day 1 of stay. This was controlled with oral metoprolol and diltiazem. She converted back to sinus rhythm, spontaneously, on 01/26/23. TTE reassuring (results above). Secondary to of the AFib development and her increased risk for blood clot given her fractures, we decided to anticoagulate her for 1 month with apixaban 2.5 mg b.i.d.. We did not discharge her on aspirin. She was also found to have an UTI, culture grew a nearly pansensitive Klebsiella. She initially had IV ceftriaxone, transitioned to oral Keflex, antibiotic course completed prior to discharge. She had a Nagel catheter placed on admission, this was removed on 01/28/23.. She was accepted at [facility] and will return to her assisted living apartment in [place] when rehab is complete. SUBSTANTIVE NOTATIONS ON IMAGING, LAB, MICROBIOLOGY/PATHOLOGY STUDIES: Hip CT Acute, minimally displaced fracture of the right superior pubic ramus extending into the anterior acetabulum. Minimally displaced fracture of the right inferior pubic ramus. No definite sacral fracture. 4.4 x 3.8 x 3.7 cm partially calcified cystic mass in the right adnexa. This is suspicious for an ovarian neoplasm. Recommend outpatient pelvic MRI for further characterization, if not previously performed. THIS IS NOT NEW, PATIENT HAS BEEN AWARE. RIGHT HIP Acute, impacted, transverse, moderately angulated fracture of the distal radius. Acute, impacted, mildly displaced, oblique fracture of the base of the ulnar styloid. DISCHARGE MEDICATIONS: See Reconciled list - SIGNIFICANT CHANGES: APIXABAN 2.5MG BID AMLODIPINE 5MG ADDING DILTIAZEM 180MG XR INCREASED METOPROLOL FROM 50MG TO 100MG XL POTASSIUM SUPPLEMENTATION Status at Discharge Functional status at discharge: uses cane/walker Overall status at discharge: patient is progressing back to baseline Time Spent with Patient Time attestation: Total time spent providing and/or coordinating discharge services: Time spent: Greater than 30 minutes Specific discharge activities: Med management, care coordination, discharge medication reconciliation Exam Narrative: Exam Narrative: GEN: Alert and sitting comfortably in bedside chair, working with OT HEENT: EOMIs bilaterally, no scleral icterus CV: RRR, No concerning murmurs R: Faint bibasilar expiratory wheeze Ext: wearing bilateral josé hose, brace on R wrist, able to wiggle fingers without pain, normal sensation and capillary refill Skin: Bruising on L side of body has improved from admission Neuro: No focal deficits Psych: Loquacious, Pleasant, no agitation Const: Vital Signs, click to edit/add: Vital Signs - 24 hr 01/28/23 09:30 01/28/23 11:00 01/28/23 16:44 Temperature 97.8 F 97.8 F Pulse Rate [Pulse Oximeter] 82 86 Respiratory Rate 18 18 18 Blood Pressure [Le ft Arm] 155/77 H 154/64 H Pulse Oximetry 89 92 92 Oxygen Delivery Me thod Room Air Room Air Room Air Oxygen Flow Rate 01/28/23 17:05 01/28/23 17:05 01/28/23 19:20 Temperature 97.4 F L Pulse Rate [Pulse Oximeter] 83 Respiratory Rate 18 18 20 Blood Pressure [Le ft Arm] 150/80 H Pulse Oximetry 92 94 Oxygen Delivery Me thod Room Air Room Air Oxygen Flow Rate 0 01/28/23 23:00 01/28/23 23:00 01/29/23 03:00 Temperature 96.6 F L Pulse Rate [Pulse Oximeter] 80 Respiratory Rate 18 16 Blood Pressure [Le ft Arm] 158/66 H Pulse Oximetry 91 91 Oxygen Delivery Me thod Room Air Room Air Oxygen Flow Rate 01/29/23 07:00 01/29/23 07:00 01/29/23 07:00 Temperature 96.8 F L Pulse Rate [Pulse Oximeter] 89 89 Respiratory Rate 16 16 16 Blood Pressure [Le ft Arm] 170/75 H Pulse Oximetry 94 94 Oxygen Delivery Me thod Room Air Room Air Oxygen Flow Rate 0 0 DS: Data Data Completed and Pending Labs on day of discharge: Labs from last 24 hours 01/29/23 05:37 Potassium 3.4 L Magnesium 1.5 Discharge Plan Discharge Disposition: [facility] Date of Admission: 01/22/23 23:16 Attending Provider on Discharge: Danya Nunez Consulting Providers: Sravan Mon Primary Care Provider: Smita Mcgraw Anticipated Discharge Date/Time: 01/29/23 08:51 Discharge Medications: New metoprolol succinate 100 mg Tablet Extended Release 24 Hr 100 mg PO DAILY Qty: 30 0RF acetaminophen 325 mg Tablet 650 mg PO QID Qty: 360 0RF bisacodyl 10 mg Suppository 10 mg AR DAILY PRNQty: 2 0RF ondansetron 4 mg Tablet,Disintegrating 4 mg PO Q6H PRNQty: 30 0RF oxycodone 5 mg Tablet 2.5 - 5 mg PO Q2H PRNQty: 30 0RF cephalexin 500 mg capsule 500 mg PO BID Qty: 10 0RF Eliquis 2.5 mg tablet 2.5 mg PO BID Qty: 60 0RF diltiazem HCl 180 mg Capsule,Extended Release 24hr 180 mg PO DAILY Qty: 30 0RF Effer-K 25 mEq Tablet, Effervescent 25 meq PO DAILY Qty: 30 0RF Continued atorvastatin 40 mg tablet 40 mg PO HS furosemide 20 mg tablet 20 mg PO DAILY mirtazapine 15 mg tablet 15 mg PO HS Discontinued metoprolol succinate 50 mg tablet extended release 24 hr 50 mg PO DAILY Discharge Orders: Discharge Order (Routine); Ordered 01/29/23 Ordered By: Danya Nunez Additional Instructions: 1. New fractures after fall: right wrist/pelvis. Pain is significant on the right hip. Pelvic fractures are not needing any surgery; the wrist will be XRayed by Ortho next week and decision is TBD regarding a pinning or surgery. Pain management: ice prn, scheduled Tylenol (not prn), prn oxycodone. 2. AFIB. this is new during this hospitalization. Likely due to the fall, the fracture and UTI. She converted back to Sinus Rhythm on 01/26. Please observe for reoccurrence (HR >100 is concerning). She will be on one month of anticoagulation because of high risk for AFIB to return and blood clots from fracture/fall/immobility. Discuss further anticoagulation with Dr. Mcgraw. 3. Low potassium - likely because of Lasix. Hamida will take a potassium supplement daily, please recheck Potassium in one week. Activity Level: Activity as Tolerated Activity Restrictions: weight bearing as tolerated; ok to use wrist with platform walker - 1 assist. Discharge Diet: Regular Follow Up Appointments: Sravan Mon MD [Staff Physician] - 01/30/23 Smita Mcgraw MD [Primary Care Provider] - Discharge Comments: PT and OT at group home facility daily Return to Orthopedics in 1 week for recheck of right wrist and x-rays with Dr. Mon or other orthopedic provider. Admit to: SNF Discharge Potential: Fair Length of Stay: 30-90 days Can use facility standing orders?: Yes Code Status: Full Code TEDs: Bilateral Knee Rehab Potential: Good Therapy: Physical Therapy and Occupational Therapy Therapy Orders: Evaluate and Treat Oxygen: No Urinary Catheter: No Lab Orders: BMP in one week Orders are good >30 days: Yes Signature: Danya Nunez MD
--- NOTE | 2023-01-29 09:25 | PC.SOCIAL ---
Discharge planning- Received a voicemail from Alejandra (Pt's daughter) works at [facility]. Alejandra informs that [facility] can accept pt today. Nurse to nurse and MD to MD is required to transfer pt. Both can be done by calling [phone]. Provided information to MD and Nurse assigned to pt. Discharge orders can be sent to [facility] at [phone]. Provided fax to [facility] on med/surg. Pt's transportation will arrive today between 10:00 am and 10:30 am. Social work will follow up as needed.
--- NOTE | 2023-01-29 12:19 | PC.NURSE ---
Patient up with platform walker to the Bedside commode. Dressed this morning with occupational therapy. Tolerating a regular diet. Pain managed with oxycodone PRN. Right arm elevated on pillows. Ride service arrived at 1015 to transport patient to [facility]. All belongings sent and forms were signed.
== END 2023-01-29 10:17 | DRG 535 ==
LOC: ED 20:03 → MEDSURG 20:08
PROVIDERS: Family Medicine; Admitting Provider Internal Medicine; Emergency Provider Emergency Medicine; PCP Family Medicine; Visit Provider Internal Medicine
DX: S32.511A Fracture of superior rim of right pubis, initial encounter for closed fracture (principal); S32.491A Other specified fracture of right acetabulum, initial encounter for closed fracture; S52.591A Other fractures of lower end of right radius, initial encounter for closed fracture; S52.611A Displaced fracture of right ulna styloid process, initial encounter for closed fracture; N39.0 Urinary tract infection, site not specified; I50.20 Unspecified systolic (congestive) heart failure; S32.591A Other specified fracture of right pubis, initial encounter for closed fracture; I48.91 Unspecified atrial fibrillation; W06.XXXA Fall from bed, initial encounter; Z91.81 History of falling; Y92.092 Bedroom in other non-institutional residence as the place of occurrence of the external cause; E86.0 Dehydration; B96.1 Klebsiella pneumoniae [K. pneumoniae] as the cause of diseases classified elsewhere; R41.0 Disorientation, unspecified; E87.6 Hypokalemia; T50.1X5A Adverse effect of loop [high-ceiling] diuretics, initial encounter; R00.0 Tachycardia, unspecified; D49.59 Neoplasm of unspecified behavior of other genitourinary organ; I27.20 Pulmonary hypertension, unspecified; J44.9 Chronic obstructive pulmonary disease, unspecified; M81.0 Age-related osteoporosis without current pathological fracture; I11.0 Hypertensive heart disease with heart failure; F17.210 Nicotine dependence, cigarettes, uncomplicated
CPT/HCPCS: 25605; 36415; 71045; 72131; 73100; 73110; 73502; 73562; 73700; 80048; 80053; 80076; 81001; 82330; 82550; 82607; 82746; 83605; 83735; 84132; 84443; 85025; 86140; 87040; 87086; 87186; 93005; 93306; 97110; 97116; 97162; 97165; 97530; 97535; 99285; A9270; J0696; J1650; J1940; J2270; J2405; J3475; J7030; J7050; J7120